=== PATIENT | female | born 1965 | race Caucasian/White ===

== ENCOUNTER → 2018-02-06 15:53 | Outpatient (CLI) | payer OTHER, SELFPAY ==
[2018-02-06 17:50] LABS: T4 Free Direct 1.18 ng/dL (0.76-1.46)
[2018-02-10 08:53] LABS: Anti-Thyroglobulin AB < 1.0 IU/mL (0.0-0.9); Thyroglobulin, Serum Qt. 1.4 ng/mL (1.5-38.5)
--- OUTSIDE RECORDS SUMMARY | 2018-04-02 17:57 | XMS RPT_ITS | Summary of Care ---
:1965 Author Organization [facility] Address [address] [place] [address] Care Team Providers Name Role Phone Lynn Ratliff DO Primary Care Provider Encounter Details Date Type Department Care Team Description 09/18/2017 Office Visit [facility] Orthopedic Kana Crabtree Seropositive and Sports Medicine Jen, MD rheumatoid arthritis [address] (HCC) (Primary Dx) Medical Office [place], [place] [address] [address] [place], [place] [phone] Allergies No Known Allergiesas of this encounter Medications Prescription Sig. Disp. Refills Start Date End Date Status ALPRAZolam (XANAX) 0.5 Take 0.5 mg 0 08/10/2015 Active MG tablet by mouth 3 (three) times a day as needed NEEDED FOR ANXIETY. amLODIPine (NORVASC) 10 08/10/2015 Active MG tablet LEVOXYL 137 mcg tablet 08/21/2015 Active venlafaxine (EFFEXOR-XR) 08/22/2015 Active 150 MG 24 hr capsule cholecalciferol (VITAMIN Take 10,000 01/22/2013 Active D3) 10,000 unit capsule Units by mouth. lisinopril Take 40 mg 1 02/14/2016 Active (PRINIVIL,ZESTRIL) 20 MG by mouth tablet daily. atorvastatin (LIPITOR) Take 10 mg 5 07/01/2016 Active 10 MG tablet by mouth daily. fluticasone (FLONASE) 50 2 sprays 2 07/12/2016 Active mcg/actuation nasal daily. spray lisinopril Take 40 mg 5 07/23/2016 Active (PRINIVIL,ZESTRIL) 40 MG by mouth tablet daily. losartan-hydrochlorothia Take 1 5 08/12/2017 Active zide (HYZAAR) 50-12.5 mg tablet by per tablet mouth daily. hydroxychloroquine Take 1 pill 60 tablet 3 06/12/2016 Discontinued (PLAQUENIL) 200 mg twice a 8 tabletIndications: day.. Seropositive rheumatoid arthritis (HCC) as of this encounter Active Problems Problem Noted Date Left lateral epicondylitis 08/21/2016 Lateral epicondylitis, right elbow 09/27/2015 Social History Tobacco Use Types Packs/Day Years Used Date Never Smoker Smokeless Tobacco: Never Used Alcohol Use Drinks/Week oz/Week Comments No Sex Assigned at Date Recorded Not on file as of this encounter Last Filed Vital Signs Vital Sign Reading Time Taken Blood Pressure 162/100 09/18/2017 10:03 AM EDT Pulse 91 09/18/2017 10:03 AM EDT Temperature - - Respiratory Rate - - Oxygen Saturation - - Inhaled Oxygen Concentration - - Weight 97.1 kg (214 lb 1.6 oz) 09/18/2017 10:03 AM EDT Height - - Body Mass Index 35.63 09/18/2017 10:03 AM EDT in this encounter Progress Notes Kana Crabtree MD - 09/18/2017 11:43 [facility] Name: Nalini Reynoso Date:09/18/17 [id number] :1965 Allergies: no known allergies. Medications: Current Outpatient Prescriptions: ??? ALPRAZolam (XANAX) 0.5 MG tablet, Take 0.5 mg by mouth 3 (three) times a day as needed NEEDED FOR ANXIETY., Disp: , Rfl: 0 ??? cholecalciferol (VITAMIN D3) 10,000 unit capsule, Take 10,000 Units by mouth., Disp: , Rfl: ??? LEVOXYL 137 mcg tablet, , Disp: , Rfl: ??? losartan-hydrochlorothiazide (HYZAAR) 50-12.5 mg per tablet, Take 1 tablet by mouth daily., Disp: , Rfl: 5 ??? venlafaxine (EFFEXOR-XR) 150 MG 24 hr capsule, , Disp: , Rfl: ??? amLODIPine (NORVASC) 10 MG tablet, , Disp: , Rfl: ??? atorvastatin (LIPITOR) 10 MG tablet, Take 10 mg by mouth daily., Disp: , Rfl: 5 ??? fluticasone (FLONASE) 50 mcg/actuation nasal spray, 2 sprays daily., Disp: , Rfl: 2 ??? lisinopril (PRINIVIL,ZESTRIL) 20 MG tablet, Take 40 mg by mouth daily., Disp: , Rfl: 1 ??? lisinopril (PRINIVIL,ZESTRIL) 40 MG tablet, Take 40 mg by mouth daily., Disp: , Rfl: 5 Chief Complaint: Patient here for rheumatoid arthritis evaluation Interim History: The patient has not been seen by me since June 2016. At that time she was started on Plaquenil andasked to return in 90 days. Patient reports that the Plaquenil did not help her when she ran out ofit she simply did not do anything further. However she returns at this time stating that her symptoms of rheumatoid have worsened. She has morning stiffness lasting 1-2 hours. She is weather sensitive with cool, damp rainy weather making her feel worse. She notes that she has multiple joints involved including her shoulders, wrists, hands, knees, ankles and feet. She has had swelling in addition. The patient has not had any major infections since her last visit. She has had no surgeries since her last visit. She has had no hospitalizations since her last visit. Interim ROS: Eyes:_Denies new ocular events___ Derm:_Denies new dermatologic disease____ ENT:_Denies new ear nose and throat events____ Cardio:_Denies new cardiac conditions___ Pulm:_Denies new pulmonary problems____ G.I:__Denies new intestinal issues Renal:_Denies new renal disorders____ Hem/Onc:_Denies new hematologic or oncologic diagnoses___ Interim Social History: No change Exams: The wrists have fair range of motion with tenderness but no swelling. The MCPs and PIPs demonstrate tenderness but no gross swelling. Patient can make a closed fist with both hands. Interim Lab Review: No recent lab work is available Impression: Active RA. Plan: 1. Discussed situation with the patient. I reviewed methotrexate with her and indicated to her thatif she were to try methotrexate she would have to abstain from alcoholic beverages and she is agreeable with that. I reviewed methotrexate with her in detail and gave her the ACR monograph on methotrexate to read. 2. We will need to obtain baseline lab work first however and the appropriate lab requisition is printed for her and given to her. Once I received all those results I will notify the patient and if she is a candidate for this medicine, we will commence treatment. 3. More than 50% of the 15 minute office time today was spent in counseling. Please note: Portions of this chart may have been created with [employer] voice recognition software. Occasional wrong-word or sound-like substitutions may have occurred due to inherent limitations of the voice recognition software. Please read the chart carefully and recognize, using context, where the substitutions have occurred. Kana Crabtree MD in this encounter Plan of Treatment Scheduled Tests Name Priority Associated Diagnoses Order Schedule BUN Routine Seropositive rheumatoid 1 Occurrences starting arthritis (HCC) 09/18/2017 until 09/19/2018 CBC and Differential Routine Seropositive rheumatoid 1 Occurrences starting arthritis (HCC) 09/18/2017 until 09/19/2018 CRP, Inflammation Routine Seropositive rheumatoid 1 Occurrences starting arthritis (HCC) 09/18/2017 until 09/19/2018 Creatinine, serum Routine Seropositive rheumatoid 1 Occurrences starting arthritis (HCC) 09/18/2017 until 09/19/2018 Hepatic Function Panel Routine Seropositive rheumatoid 1 Occurrences starting arthritis (HCC) 09/18/2017 until 09/19/2018 Hepatitis B Surface Routine Seropositive rheumatoid 1 Occurrences starting Antibody arthritis (HCC) 09/18/2017 until 09/19/2018 Hepatitis C Antibody Routine Seropositive rheumatoid 1 Occurrences starting arthritis (HCC) 09/18/2017 until 09/19/2018 Rheumatoid factor Routine Seropositive rheumatoid 1 Occurrences starting arthritis (HCC) 09/18/2017 until 09/19/2018 CCP Antibody Routine Seropositive rheumatoid 1 Occurrences starting arthritis (HCC) 09/18/2017 until 09/19/2018 M. Tuberculosis by Routine Seropositive rheumatoid 1 Occurrences starting QuantiFERON arthritis (HCC) 09/18/2017 until 09/19/2018 Sedimentation Rate Routine Seropositive rheumatoid 1 Occurrences starting arthritis (HCC) 09/18/2017 until 09/19/2018 Health Maintenance Due Date Last Done Comments COLONOSCOPY 1965 PAP SMEAR 1965 TETANUS EVERY 10 YR 1965 SEQUENTIAL INFLUENZA VACCINE (#1) 2017 as of this encounter Visit Diagnoses Diagnosis Seropositive rheumatoid arthritis (HCC) - Primary
--- OUTSIDE RECORDS SUMMARY | 2018-04-02 17:57 | XMS RPT_ITS | Summary of Care ---
:1965 Author Organization [facility] Address [address] [place] [address] Care Team Providers Name Role Phone Lynn Ratliff DO Primary Care Provider Encounter Details Date Type Department Care Team Description 09/18/2017 Hospital Encounter [facility] [place] [address] MD [place], [place] [address] [id number] [place] [address] Allergies No Known Allergiesas of this encounter Medications Prescription Sig. Disp. Refills Start Date End Date Status ALPRAZolam (XANAX) 0.5 MG Take 0.5 mg by 0 08/10/2015 Active tablet mouth 3 (three) times a day as needed NEEDED FOR ANXIETY. amLODIPine (NORVASC) 10 MG 08/10/2015 Active tablet LEVOXYL 137 mcg tablet 08/21/2015 Active venlafaxine (EFFEXOR-XR) 08/22/2015 Active 150 MG 24 hr capsule cholecalciferol (VITAMIN Take 10,000 Units 01/22/2013 Active D3) 10,000 unit capsule by mouth. lisinopril Take 40 mg by 1 02/14/2016 Active (PRINIVIL,ZESTRIL) 20 MG mouth daily. tablet atorvastatin (LIPITOR) 10 Take 10 mg by 5 07/01/2016 Active MG tablet mouth daily. fluticasone (FLONASE) 50 2 sprays daily. 2 07/12/2016 Active mcg/actuation nasal spray lisinopril Take 40 mg by 5 07/23/2016 Active (PRINIVIL,ZESTRIL) 40 MG mouth daily. tablet losartan-hydrochlorothiazid Take 1 tablet by 5 08/12/2017 Active e (HYZAAR) 50-12.5 mg per mouth daily. tablet as of this encounter Active Problems Problem Noted Date Left lateral epicondylitis 08/21/2016 Lateral epicondylitis, right elbow 09/27/2015 Social History Tobacco Use Types Packs/Day Years Used Date Never Smoker Smokeless Tobacco: Never Used Alcohol Use Drinks/Week oz/Week Comments No Sex Assigned at Date Recorded Not on file as of this encounter Plan of Treatment Health Maintenance Due Date Last Done Comments COLONOSCOPY 1965 PAP SMEAR 1965 TETANUS EVERY 10 YR 1965 SEQUENTIAL INFLUENZA VACCINE (#1) 2017 as of this encounter Results Sedimentation Rate (09/18/2017 10:39 AM) Component Value Ref Range Sed Rate 11 0 - 20 MM/hr. Specimen [place]forming [place] [address] BUN and Creatinine (09/18/2017 10:39 AM) Component Value Ref Range BUN 9 8 - 25 mg/dL Creatinine 0.73 0.40 - 1.10 mg/dL eGFR >=60 ml/min/1.73sq.m Comment: Non- GFR Calc eGFR is an estimated Glomerular Filtration Rate based on the value of the patient's serum creatinine. In outpatients, eGFR should be used as a helpful tool in screening for CKD. In inpatients or patients with acute renal failure, eGFR represents the GFR at the moment of the draw and should be used with caution. eGFR >=60Comment: GFR Calc ml/min/1.73sq.m Specimen Performing Laboratory Blood [address] [address] Hepatic Function Panel (09/18/2017 10:39 AM) Component Value Ref Range AST 45 0 - 45 U/L Comment: This test result might be falsely depressed or falsely elevated on samples drawn from patients taking Sulfasalazine and Sulfapyridine. Venipuncture should occur prior to taking either of these drugs. ALT 91 (H) 14 - 65 U/L Comment: This test result might be falsely depressed or falsely elevated on samples drawn from patients taking Sulfasalazine and Sulfapyridine. Venipuncture should occur prior to taking either of these drugs. Alkaline Phosphatase 64 40 - 150 U/L Bilirubin, Total 0.5 0.3 - 1.2 mg/dL Bilirubin, Direct <0.1 0.0 - 0.4 mg/dL Total Protein 7.5 6.0 - 8.0 g/dL Albumin 4.0 3.2 - 5.2 g/dL Specimen Performing [place] [address] CRP, C-Reactive Protein (09/18/2017 10:39 AM) Component Value Ref Range CRP - Inflammation 13.5 (H) 0.0 - 10.0 mg/L Specimen Performing [place] [address] CBC and Differential (09/18/2017 10:39 AM) Component Value Ref Range WBC 8.1 3.4 - 10.6 K/mcL RBC 4.51 3.7 - 5.0 M/mcL Hemoglobin 13.4 11.6 - 15.4 g/dL Hematocrit 39.7 34.4 - 44.8 % MCV 88.1 82.6 - 98.9 FL MCH 29.6 27.9 - 33.9 pg MCHC 33.6 33.1 - 35.1 g/dL RDW 14.6 (H) 10.0 - 14.4 % Platelets 363 162 - 402 K/mcL MPV 7.9 7.0 - 10.6 FL Absolute Neutrophils 5.4 1.2 - 6.9 K/mcL Absolute Lymphocytes 1.8 1.0 - 3.7 K/mcL Absolute Monocytes 0.6 0.1 - 0.6 K/mcL Absolute Eosinophils 0.3 0 - 0.5 K/mcL Absolute Basophils 0.1 0 - 0.2 K/mcL Segmented Neut 66.4 % Lymphocytes 22.7 % Monocytes 7.0 % Eosinophils 3.1 % Basophils 0.8 % Specimen [place]forming [place] [address] in this encounter
--- OUTSIDE RECORDS SUMMARY | 2018-04-02 17:58 | XMS RPT_ITS ---
:1965 Author Organization OHIP Care Team Providers Name Role Phone ALBERTO MEJIA Referring Unavailable ALBERTO MEJIA Referring Unavailable ALBERTO MEJIA Attending Unavailable OLGA MARES S Referring Unavailable ALBERTO MEJIA Referring Unavailable ALBERTO CRABTREE Attending Unavailable Alberto Mejia Attending Unavailable Alberto Mejia Referring Unavailable , OLGA Primary Care Unavailable Isis Carcamo LAUNDRY TECHNICIAN-C Consulting Unavailable Dr. Alberto Crabtree Admitting Unavailable Dr. Alberto Crabtree Attending Unavailable ALBERTO CRABTREE EVI Attending Unavailable , OLGA S. Primary Care Unavailable ALBERTO CRABTREE Attending Unavailable ROYAL, OLGA S. Primary Care Unavailable [place], Olga S Attending Unavailable [place], Olga S Primary Care Unavailable [place], Olga S Admitting Unavailable [place], Olga S Attending Unavailable [place], Olga S Primary Care Unavailable [place], Olga S Attending Unavailable [place], Olga S Primary Care Unavailable KangSantos campos Attending Unavailable [place], Olga S Primary Care Unavailable Olaf Hurtado Admitting Unavailable NewbillOlaf Attending Unavailable [place], Olga S Primary Care Unavailable [place], Olga S Attending Unavailable [place], Olga S Primary Care Unavailable [place], Olga S Admitting Unavailable Santos Kapadia Admitting Unavailable KangSantos campos Attending Unavailable [place], Olga S Primary Care Unavailable KangSantos campos Attending Unavailable [place], Olga S Primary Care Unavailable KangSantos campos Admitting Unavailable [place], Olga S Attending Unavailable [place], Olga S Primary Care Unavailable [place], Olga S Attending Unavailable [place], Olga S Primary Care Unavailable [place], Olga S Admitting Unavailable Carmen Maldonado Attending Unavailable [place], Olga S Primary Care Unavailable Carmen Maldonado Admitting Unavailable [place], Olga S Admitting Unavailable [place], Olga S Attending Unavailable [place], Olga S Primary Care Unavailable [place], Olga S Attending Unavailable [place], Olga S Primary Care Unavailable [place], Olga S Admitting Unavailable [place], Olga S Attending Unavailable [place], Olga S Primary Care Unavailable StadnickAlberto S Admitting Unavailable StadnickAlberto S Attending Unavailable [place], Olga S Primary Care Unavailable [place], Olga S Attending Unavailable [place], Olga S Primary Care Unavailable [place], Olga S Admitting Unavailable No Doctor Assigned, Nodr Admitting Unavailable No Doctor Assigned, Nodr Attending Unavailable [place], Olga S Primary Care Unavailable SunlOlaf Admitting Unavailable NewbillOlaf Attending Unavailable [place], Olga S Primary Care Unavailable GermainJaclynd Admitting Unavailable GermainJaclynd Attending Unavailable [place], Olga S Primary Care Unavailable GermainJaclynd Admitting Unavailable Germain, Charan Attending Unavailable [place], Olga S Primary Care Unavailable [place], Olga S Admitting Unavailable [place], Olga S Attending Unavailable [place], Olga S Primary Care Unavailable [place], Olga S Attending Unavailable [place], Olga S Primary Care Unavailable [place], Olga S Admitting Unavailable [place], Olga S Admitting Unavailable [place], Olga S Attending Unavailable [place], Olga S Primary Care Unavailable [place], Olga S Attending Unavailable [place], Olga S Primary Care Unavailable PROBLEMS PROBLEMS DATE TYPE CONDITION / CODE ATTENDING STATUS SOURCE 09/18/2017 Admitting Encounter for ALBERTO CRABTREE Active [facility] One diagnosis general adult EVI Repository medical examination without abnormal findings / Z00.00(ICD-10) 09/18/2017 Admitting Rheumatoid ALBERTO CRABTREE Active [facility] diagnosis arthritis with EVI Three Repository rheumatoid factor, unspecified / M05.9(ICD-10) 07/22/2017 Active Unknown / ALBERTO MEJIA Active [facility] UNK(Unknown) A [place] Repository 09/18/2006 Active [address] NA [address] 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 / Repository C73(ICD-10) PROCEDURES PROCEDURES No Procedure Records FoundRESULTS RESULTS THYROID STIM HORMONE Collected: 02/06/2018 Status: F Source: NBA (TSH) 3:58 PM [facility] REPOSITORY TYPE CODE TESTS RESULT OUT OF RANGE REFERENCE UNITS LAB L501.9520 0.358-3.74 uIU/mL High TSH 10.20 Performed By: #### L501.9520, L506.0400 #### [facility] [address] [place], [place], [id number] T4 FREE DIRECT Collected: 02/06/2018 Status: F Source: NBA 3:58 PM [facility] REPOSITORY TYPE CODE TESTS RESULT OUT OF RANGE REFERENCE UNITS LAB L506.0400 0.76-1.46 ng/dL Normal T4 FREE 1.18 DIRECT Performed By: #### L501.9520, L506.0400 #### [facility] [address] [place], [place], [address] THYROGLOBULIN W/ANTI-TG Collected: 02/06/2018 Status: F Source: NBA AB 3:58 PM [facility] REPOSITORY TYPE CODE TESTS RESULT OUT OF RANGE REFERENCE UNITS LAB L3300.7025 0.0-0.9 IU/mL Normal ANTI-TG < 1.0 AB Result Comment: Thyroglobulin Antibody measured by [facility] LAB L3400.1030 1.5-38.5 ng/mL Low THYROGLOB 1.4 Result Comment: According to the National Academy of Clinical Biochemistry, the reference interval for Thyroglobulin (TG) should be related to euthyroid patients and not for patients who underwent thyroidectomy. TG reference intervals for these patients depend on the residual mass of the thyroid tissue left after surgery. Establishing a post-operative baseline is recommended. The assay limit of quantitation is 0.1 ng/mL Thyroglobulin measured by Dasha Wakefield Immunometric Assay Performed at: - [facility] [address] [id number] Fibreglass Laminator: Bobby Watkins PhD, Phone: [phone] Performed By: #### L3300.2645 #### [facility] (refer to report for specific site) refer to report for address and phone number BMP Collected: 01/21/2018 Status: F Source: [facility] 10:10 AM [facility] REPOSITORY TYPE CODE TESTS RESULT OUT OF RANGE REFERENCE UNITS LAB [id number](L 70-99 mg/dL OINC) High Glucose Lvl 116 LAB [id number](L 6-23 mg/dL OINC) BUN Normal 10 LAB [id number](LO 0.5-1.1 mg/dL INC) Normal Creatinine 0.7 LAB [id number](L 5.4-30.0 ratio OINC) Normal BUN/Creat Ratio 14.3 LAB [id number](L 8.6-10.3 mg/dL OINC) Calcium Normal Lvl 9.3 LAB [id number](L 136-145 mEq/L OINC) Sodium Normal Lvl 142 LAB [id number](L 3.5-5.3 mEq/L OINC) Normal Potassium Lvl 3.5 LAB 01711020(L 98-107 mEq/L OINC) Chloride Normal 106 LAB [id number](L 21.0-32.0 mEq/L OINC) CO2 Normal 28.0 Performed By: #### [id number] #### LANDEN [employer] [facility] [place] [address] EGFR Collected: 01/21/2018 Status: F Source: [facility] 10:10 AM [facility] REPOSITORY Order Comment: Order added by Discern Expert. TYPE CODE TESTS RESULT OUT OF RANGE REFERENCE UNITS LAB [id number](LO mL/min/1.73 INC) m2 Normal eGFR >60 LAB [id number](LO mL/min/1.73 INC) m2 Normal eGFR AA >60 Performed By: #### [id number] #### LANDEN [employer] [address] [place], [place] [address] HEP FUNC PANEL Collected: 01/21/2018 Status: F Source: [facility] 10:10 AM [facility] REPOSITORY TYPE CODE TESTS RESULT OUT OF RANGE REFERENCE UNITS LAB [id number](L 7-45 Int._Unit/L OINC) High ALT 59 LAB 60423283(L 9-39 Int._Unit/L OINC) High AST 43 LAB 30981910(L 3.4-5.0 gm/dL OINC) Normal Albumin Lvl 4.4 LAB 93023430(L 2.0-4.0 G/DL OINC) Normal Globulin 3.0 LAB 36141734(L 1.1-1.9 ratio OINC) Normal A/G Ratio 1.6 LAB 47231208(L 33-110 Int._Unit/L OINC) Normal Alk Phos 62 LAB [id number](L 0.00-0.30 mg/dL OINC) Normal Bili Direct 0.08 LAB 44794314(L OINC) Normal Bili Indirect 0.4 Result Comment: No established ranges available for the Indirect Biliruben. LAB 02420179(LOINC) 0.0-1.2 mg/dL Normal Bili Total 0.5 LAB 08840758(LOINC) 6.4-8.2 gm/dL Normal Total Protein 7.1 Performed By: #### [id number] #### LANDEN [employer] [address] [place], [place] [address] LIPID PROFILE Collected: 01/21/2018 Status: F Source: [facility] 10:10 AM [facility] REPOSITORY TYPE CODE TESTS RESULT OUT OF RANGE REFERENCE UNITS LAB [id number](LO 0-199 mg/dL INC) High Chol 212 Result Comment: TOTAL CHOLEESTEROL: <200 NORMAL 200 - 239 BORDERLINE HIGH >240 HIGH LAB 78832690(LOINC) 40-60 mg/dL Normal HDL 51 LAB 43876691(LOINC) 0-130 mg/dL Normal LDL 119 Result Comment: <100 OPTIMAL 100-129 NEAR / ABOVE OPTIMAL 130-159 BORDERLINE HIGH 160-189 HIGH >190 VERY HIGH CALC LDL NOT VALID WHEN TRIGLYCERIDE IS >400 MG/DL LAB 51453421(LOINC) 0-149 mg/dL High Trig 212 Result Comment: AGE DESIRABLE BORDERLINE HIGH 91 D - 9 Y 0 - 74 75 - 99 > 100 10 - 19 Y 0 - 89 90 - 129 > 130 20 -24 Y 0 - 114 115 - 149 > 150 > 25 0 - 149 150 - 199 200 - 499 LAB 77340402(LOINC) 0-40 mg/dL High VLDL 42 Performed By: #### [id number] #### L[facility]EN [employer] [address] [place] [address] HGBA1C Collected: 01/21/2018 Status: F Source: [place] 10:10 AM [facility] REPOSITORY TYPE CODE TESTS RESULT OUT OF RANGE REFERENCE UNITS LAB [id number]( 4.0-6.3 % LOINC) Normal Hemoglobin A1c 6.2 Performed By: #### [id number] #### LANDEN Chemistry Manual Subsection [address] [place] [address] MA MAMM SCREEN W/CAD Observed: 01/19/2018 Status: F Source: [place] IF PERFORMED BILAT 1:03 PM [facility] REPOSITORY Exam Date/Time: 01/19/2018 13:12 EST Reason for Exam: SCREENING;Screening Report STUDY: Digital mammography screening; 01/19/2018 1:12 pm ACCESSION NUMBER(S): [id number] ORDERING CLINICIAN: Santos Kapadia INDICATION: Screening. COMPARISON: Comparison is made to prior digital mammograms dated 01/16/2017 and 12/14/2015 FINDINGS: CC and MLO 2D digital mammographic images of the bilateral breasts were obtained. There are areas of scattered fibroglandular tissue. No discrete mass or focal asymmetry is identified. No suspicious microcalcifications or foci of architectural distortion are seen. There has been no significant change. This study was interpreted with CAD. IMPRESSION: No mammographic evidence of malignancy. BI-RADS CATEGORY: Category: 1 - Negative. Recommendation: Normal Interval Follow-up, Over Age 40. Recall Interval: 12 Months. Breast Density: Scattered Fibroglandular Density. FINAL REPORT Dictated: 01/20/2018 11:07 am Harrison Dykes MD Signed (Electronic Signature): 01/20/2018 11:07 am Signed by: Harrison Dykes MD Technologist: ANGE Assessment: BI-RADS Category 1-Negative Recommendation: Normal interval follow-up XR CHEST 2 VIEWS Observed: 12/26/2017 Status: F Source: [facility] 11:40 AM [facility] REPOSITORY Exam Date/Time: 12/26/2017 11:50 EDT Reason for Exam: Cough Report STUDY: XR Chest 2 Views; 12/26/2017 11:50 am INDICATION: Cough. COMPARISON: Chest x-ray 03/08/2014 ACCESSION NUMBER(S): [id number] ORDERING CLINICIAN: Charan Germain FINDINGS: Small lung volumes. The lungs appear clear without pleural effusion. Normal heart size, mediastinum, kailee, pulmonary vasculature. IMPRESSION: No active disease in the chest. FINAL REPORT Dictated: 12/26/2017 6:27 pm Paul Mondragon MD Signed (Electronic Signature): 12/26/2017 6:27 pm Signed by: Paul Mondragon MD Technologist: LOUIE HEP FUNC PANEL Collected: 11/18/2017 Status: F Source: [facility] 2:22 PM [facility] REPOSITORY TYPE CODE TESTS RESULT OUT OF RANGE REFERENCE UNITS LAB [id number](L 10-40 Int._Unit/L OINC) High ALT 59 LAB 88631898(L 10-42 Int._Unit/L OINC) High AST 48 LAB 95711643(L 3.2-5.0 G/DL OINC) Normal Albumin Lvl 4.6 LAB 78526490(L 2.0-4.0 G/DL OINC) Normal Globulin 3.1 LAB 16295537(L 1.1-1.9 ratio OINC) Normal A/G Ratio 1.5 LAB [id number](L 42-121 Int._Unit/L OINC) Normal Alk Phos 59 LAB 51067556(L .00-.20 mg/dL OINC) Normal Bili Direct <.10 LAB 72170493(L OINC) Normal Bili Indirect >0.6 Result Comment: No established ranges available for the Indirect Biliruben. LAB 67085975(LOINC) 0.2-1.0 mg/dL Normal Bili Total 0.7 LAB 88146930(LOINC) 6.4-8.3 G/DL Normal Total Protein 7.7 Performed By: #### [id number] #### LANDEN [facility] [place] [address] CBC W/ AUTO DIFF Collected: 10/08/2017 Status: F Source: [facility] 8:26 AM [facility] REPOSITORY TYPE CODE TESTS RESULT OUT OF RANGE REFERENCE UNITS LAB [id number](L 3.6-11.0 E3/mcL OINC) Normal WBC 9.9 LAB [id number](L 3.90-5.40 E6/mcL OINC) Normal RBC 4.17 LAB [id number](L 12.0-16.0 G/DL OINC) Normal Hgb 12.6 LAB 80005756(L 36.0-48.0 % OINC) Normal Hct 36.6 LAB 54141561(L 11.5-14.5 % OINC) Normal RDW 14.1 LAB 11164005(L 27.0-31.0 pg OINC) Normal MCH 30.2 LAB 66421671(L 33.0-37.0 G/DL OINC) Normal MCHC 34.4 LAB 16821673(L 78.0-100.0 fL OINC) Normal MCV 87.8 LAB 57889783(L 7.4-11.0 fL OINC) Normal MPV 8.5 LAB 40254072(L 130-400 E3/mcL OINC) Normal Platelet 373 Performed By: #### [id number] #### LANDEN [facility] [place] [id number] AUTO DIFF Collected: 10/08/2017 Status: F Source: [facility] 8:26 AM [facility] REPOSITORY Order Comment: Order Added by Discern Expert. TYPE CODE TESTS RESULT OUT OF RANGE REFERENCE UNITS LAB [id number](L 37.0-75.0 % OINC) Normal Neutro Auto 67.3 LAB 65319438(L 20.0-55.0 % OINC) Normal Lymph Auto 23.3 LAB 67994428(L 0.0-10.0 % OINC) Normal [place] Auto 6.4 LAB 00773278(L 0.0-11.0 % OINC) Normal Eos Auto 2.4 LAB 97951827(L 0.0-2.0 % OINC) Normal Basophil Auto 0.6 LAB 91929313(L 1.4-6.5 E3/mcL OINC) High Neutro 6.6 Absolute LAB 31999067(L 1.2-3.4 E3/mcL OINC) Normal Lymph Absolute 2.3 LAB 71225747(L 0.0-0.7 E3/mcL OINC) Normal [place] Absolute 0.6 LAB 58453107(L 0.0-0.7 E3/mcL OINC) Normal Eos Absolute 0.2 LAB 23194615(L 0.0-0.2 E3/mcL OINC) Normal Basophil 0.1 Absolute Performed By: #### [id number] #### LANDEN [employer] [address] [place] [address] TSH Collected: 10/08/2017 Status: F Source: [facility] 8:26 AM [facility] REPOSITORY TYPE CODE TESTS RESULT OUT OF RANGE REFERENCE UNITS LAB [id number](LO 0.30-5.60 mIU/m INC) Normal TSH 2.48 Performed By: #### [id number] #### LANDEN [employer] [address] [place] [address] BMP Collected: 10/08/2017 Status: F Source: [facility] 8:26 AM [facility] REPOSITORY TYPE CODE TESTS RESULT OUT OF RANGE REFERENCE UNITS LAB [id number](L 70-99 mg/dL OINC) High Glucose Lvl 111 LAB 73421454(L 7-18 mg/dL OINC) BUN Normal 12 LAB 4879584(LO 0.6-1.3 mg/dL INC) Normal Creatinine 0.7 LAB 64279135(L 5.4-30.0 ratio OINC) Normal BUN/Creat Ratio 17.1 LAB 49461153(L 8.4-10.2 mg/dL OINC) Calcium Normal Lvl 8.9 LAB 79602623(L 136-145 mEq/L OINC) Sodium Normal Lvl 139 LAB [id number](L 3.5-5.1 mEq/L OINC) Low Potassium Lvl 3.2 LAB 89062715(L 98-107 mEq/L OINC) Chloride Normal 103 LAB [id number](L 24.0-30.0 mEq/L OINC) CO2 Normal 27.2 Performed By: #### [id number] #### [place] [address] EGFR Collected: 10/08/2017 Status: F Source: [facility] 8:26 AM [facility] REPOSITORY Order Comment: Order added by Discern Expert. TYPE CODE TESTS RESULT OUT OF RANGE REFERENCE UNITS LAB 85375989(LO mL/min/1.73 INC) m2 Normal eGFR >60 LAB 88676517(LO mL/min/1.73 INC) m2 Normal eGFR AA >60 Performed By: #### [id number] #### [place] [address] ALT Collected: 10/08/2017 Status: F Source: [facility] 8:26 [facility] REPOSITORY TYPE CODE TESTS RESULT OUT OF RANGE REFERENCE UNITS LAB 77032169(LO 10-40 Int._Unit/L INC) High ALT 74 Performed By: #### [id number] #### [place] [address] AST Collected: 10/08/2017 Status: F Source: [facility] 8:26 AM [facility] REPOSITORY TYPE CODE TESTS RESULT OUT OF RANGE REFERENCE UNITS LAB [id number](LO 10-42 Int._Unit/L INC) High AST 59 Performed By: #### [id number] #### LANDEN [employer] [address] [place] [address] LIPID PROFILE Collected: 10/08/2017 Status: F Source: [facility] 8:26 AM [facility] REPOSITORY TYPE CODE TESTS RESULT OUT OF RANGE REFERENCE UNITS LAB [id number](LO 50-200 mg/dL INC) High Chol 254 Result Comment: TOTAL CHOLEESTEROL: <200 NORMAL 200 - 239 BORDERLINE HIGH >240 HIGH LAB 97344073(LOINC) >=41 mg/dL Normal HDL 44 LAB 62025465(LOINC) 0-130 mg/dL High LDL 141 Result Comment: <100 OPTIMAL 100-129 NEAR / ABOVE OPTIMAL 130-159 BORDERLINE HIGH 160-189 HIGH >190 VERY HIGH CALC LDL NOT VALID WHEN TRIGLYCERIDE IS >400 MG/DL LAB 66694490(LOINC) 35-150 mg/dL High Trig 346 Result Comment: <150 NORMAL 150-199 BORDERLINE HIGH 200-499 HIGH >500 VERY HIGH LAB 96366574(INC) Normal VLDL 69 Performed By: #### [id number] #### [place] [employer] [address] [place], [place] [address] CBC WITH DIFF Collected: 09/18/2017 Status: F Source: [facility] 10:39 AM [facility] REPOSITORY TYPE CODE TESTS RESULT OUT OF RANGE REFERENCE UNITS LAB WBC 3.4-10.6 K/mcL WBC Normal 8.1 LAB RBC 3.7-5.0 M/mcL RBC Normal 4.51 LAB HGB 11.6-15.4 g/dL Normal Hemoglobin 13.4 LAB HCT 34.4-44.8 % Normal Hematocrit 39.7 LAB MCV 82.6-98.9 FL MCV Normal 88.1 LAB MCH 27.9-33.9 pg MCH Normal 29.6 LAB MCHC 33.1-35.1 g/dL MCHC Normal 33.6 LAB RDW 10.0-14.4 % High RDW 14.6 LAB PLT 162-402 K/mcL Platelet Normal Count 363 LAB MPV 7.0-10.6 FL MPV Normal 7.9 LAB NEUT# 1.2-6.9 K/mcL Normal Neutrophil # 5.4 LAB LYMPH# 1.0-3.7 K/mcL Normal Lymphocyte # 1.8 LAB MONO# 0.1-0.6 K/mcL Monocyte Normal # 0.6 LAB EOS# 0-0.5 K/mcL Normal Eosinophil # 0.3 LAB BASO# 0-0.2 K/mcL Basophil Normal # 0.1 LAB SEGNEU% % Normal Segmented Neut % 66.4 LAB LYMP% % Normal Lymphocyte% 22.7 LAB MO% % Monocyte Normal % 7.0 LAB EO% % Normal Eosinophil % 3.1 LAB BA% % Basophil Normal % 0.8 Performed By: #### HEPF, HBSABS, HEPCABS, SEDR, CRPQT, CBCDIF, BUNCR, CCPAB #### Unless otherwise noted, all testing performed by [address], [place] [address] CLIA: [id number] Artificial Leather Calender Operator: Juan Antonio Florian, M.D. CRP, C-REACTIVE Collected: 09/18/2017 Status: F Source: [facility] PROTEIN 10:39 AM [facility] REPOSITORY TYPE CODE TESTS RESULT OUT OF REFERENCE UNITS RANGE LAB CRPQT 0.0-10.0 mg/L High CRP, 13.5 C-Reactive Protein Performed By: #### HEPF, HBSABS, HEPCABS, SEDR, CRPQT, CBCDIF, BUNCR, CCPAB #### Unless otherwise noted, all testing performed by [place] [address] CLIA: [id number] Artificial Leather Calender Operator: Juan Antonio Du M.D. HEPATIC FUNCTION Collected: 09/18/2017 Status: F Source: [facility] PANEL 10:39 AM [facility] REPOSITORY TYPE CODE TESTS RESULT OUT OF RANGE REFERENCE UNITS LAB AST 0-45 U/L Normal AST 45 (SGOT) Result Comment: This test result might be falsely depressed or falsely elevated on samples drawn from patients taking Sulfasalazine and Sulfapyridine. Venipuncture should occur prior to taking either of these drugs. LAB ALT 14-65 U/L High ALT (SGPT) 91 Result Comment: This test result might be falsely depressed or falsely elevated on samples drawn from patients taking Sulfasalazine and Sulfapyridine. Venipuncture should occur prior to taking either of these drugs. LAB ALKP 40-150 U/L Normal Alkaline Phosphatase 64 LAB BILIT 0.3-1.2 mg/dL Normal Bilirubin,Total 0.5 LAB BILID 0.0-0.4 mg/dL Normal Bilirubin, Direct < 0.1 LAB PROT 6.0-8.0 g/dL Normal Protein, Total 7.5 LAB ALB 3.2-5.2 g/dL Normal Albumin 4.0 Performed By: #### HEPF, HBSABS, HEPCABS, SEDR, CRPQT, CBCDIF, BUNCR, CCPAB #### Unless otherwise noted, all testing performed by [place] [address] CLIA: [id number] Artificial Leather Calender Operator: Juan Antonio Du M.D. BUN AND CREATININE Collected: 09/18/2017 Status: F Source: [facility] 10:39 AM [facility] REPOSITORY TYPE CODE TESTS RESULT OUT OF RANGE REFERENCE UNITS LAB BUN 8-25 mg/dL BUN Normal 9 LAB CREA 0.40-1.10 mg/dL Normal Creatinine 0.73 LAB eGFR ml/min/1.7 3sq.m Normal eGFR,NonAfrican- >=60 Turkish Result Comment: Non- GFR Calc eGFR is an estimated Glomerular Filtration Rate based on the value of the patient's serum creatinine. In outpatients, eGFR should be used as a helpful tool in screening for CKD. In inpatients or patients with acute renal failure, eGFR represents the GFR at the moment of the draw and should be used with caution. LAB eGFRB ml/min/1.73sq.m eGFR, Normal -Turkish >=60 Result Comment: GFR Calc Performed By: #### HEPF, HBSABS, HEPCABS, SEDR, CRPQT, CBCDIF, BUNCR, CCPAB #### Unless otherwise noted, all testing performed by [place] [address] CLIA: [id number] Artificial Leather Calender Operator: Juan Antonio Du M.D. SED RATE Collected: 09/18/2017 Status: F Source: [facility] 10:39 AM [facility] TYPE CODE TESTS RESULT OUT OF RANGE REFERENCE UNITS LAB SEDR 0-20 MM/hr. Normal Sed Rate 11 Performed By: #### HEPF, HBSABS, HEPCABS, SEDR, CRPQT, CBCDIF, BUNCR, CCPAB #### Unless otherwise noted, all testing performed by [place] [address] CLIA: [id number] Artificial Leather Calender Operator: Juan Antonio Du M.D. CCP ANTIBODIES Collected: 09/18/2017 Status: F Source: [facility] 10:39 AM [facility] REPOSITORY TYPE CODE TESTS RESULT OUT OF RANGE REFERENCE UNITS LAB CCPAB 0.0-20.0 Unit CCP Normal Antibodies 4.7 Result Comment: Reference Ranges: <20Units Negative 20-39Units Weakly Positive 40-59Units Moderative Positive >=60Units Strong Positive Test Performed by [facility] [place] [address] Performed By: #### HEPF, HBSABS, HEPCABS, SEDR, CRPQT, CBCDIF, BUNCR, CCPAB #### Unless otherwise noted, all testing performed by [place] [address] CLIA: [id number] Artificial Leather Calender Operator: Juan Antonio Du M.D. HEPATITIS C ANTIBODY Collected: 09/18/2017 Status: F Source: [facility] 10:39 AM [facility] REPOSITORY TYPE CODE TESTS RESULT OUT OF REFERENCE UNITS RANGE LAB HEPCABS Negative Normal Hepatitis C Negative Antibody Result Comment: Test performed using Claudia ECTOR immunoassay system [place] [address] Performed By: #### HEPF, HBSABS, HEPCABS, SEDR, CRPQT, CBCDIF, BUNCR, CCPAB #### Unless otherwise noted, all testing performed by [place] [address] CLIA: [id number] Artificial Leather Calender Operator: Juan Antonio Du M.D. HEPATITIS B SURFACE Collected: 09/18/2017 Status: F Source: [facility] ABS 10:39 AM [facility] REPOSITORY TYPE CODE TESTS RESULT OUT OF REFERENCE UNITS RANGE LAB HBSABQTS mIU/mL Normal Hepatitis B < 5.0 Surf Ab, Qt Result Comment: REFERENCE VALUE Unvaccinated: <5.0 Vaccinated: >=12.0 Test Performed by: [facility] [address] [place] [address] LAB HBSABS Normal Hepatitis B Negative Surface Abs Result Comment: Patient is presumed to be not immune to infection with HBV. REFERENCE VALUE Unvaccinated: Negative Vaccinated: Positive Performed By: #### HEPF, HBSABS, HEPCABS, SEDR, CRPQT, CBCDIF, BUNCR, CCPAB #### Unless otherwise noted, all testing performed by [place] [address] CLIA: [id number] Artificial Leather Calender Operator: Juan Antonio Du M.D. RHEUMATOID FACTOR Collected: 09/18/2017 Status: F Source: [facility] 10:39 [facility] REPOSITORY TYPE CODE TESTS RESULT OUT OF RANGE REFERENCE UNITS LAB RF Negative Abnormal Rheumatoid Positive Factor LAB RFT Rheumatoid > or = 1:32 Factor Titer Performed By: #### RF #### Unless otherwise noted, all testing performed by [place] [address] CLIA: [id number] Artificial Leather Calender Operator: Juan Antonio Du M.D. M.TUBERCULOSIS BY Collected: 09/18/2017 Status: F Source: [facility] QUANTIFERON 10:39 [facility] REPOSITORY TYPE CODE TESTS RESULT OUT OF REFERENCE UNITS RANGE LAB QFT Negative Normal M.Tuberculosis by Negative QuantiFERON Result Comment: No interferon-gamma response to M. tuberculosis antigens was detected. Infection with M. tuberculosis is unlikely. A single negative result does not exclude infection with M. tuberculosis. In patients at high risk for M.tuberculosis infection, a second test should be considered in accordance with the 2017 ATS/IDSA/CDC Clinical Practice Guidelines for Diagnosis of Tuberculosis in Adults and Children [Jhinsohn DM et. al. Clin. Infect. Dis. 2017;64(2):111-115]. LAB DEXQ3 IU/mL Normal Mitogen Minus > 10.00 Nil Result LAB DEXQ4 IU/mL Normal QFT- Nil Result 0.05 Result Comment: Test Performed by: [facility] [address] [place] [address] LAB QFTDEXQE IU/mL Normal TB1 Ag minus -0.01 Nil Result LAB QFTDEXQF IU/mL Normal TB2 Ag minus 0.00 Nil Result Performed By: #### QFT #### Unless otherwise noted, all testing performed by [place] [address] [address] [place], [place] [address] CLIA: [id number] Artificial Leather Calender Operator: Juan Antonio Du M.D. IGP W/HPV RFX Collected: 08/18/2017 Status: F Source: [facility] [id number] 1:11 PM [facility] REPOSITORY Order Comment: Thin Prep. Menopause TYPE CODE TESTS RESULT OUT OF RANGE REFERENCE UNITS LAB [id number](LO INC) Normal See Ref Lab Diagnosis: Report Performed By: #### [id number] #### [place] [address] PATHOLOGY ([facility]) Observed: 08/18/2017 Status: F Source: [facility] 12:00 AM REPOSITORY FINAL GYNECOLOGIC CYTOLOGY REPORT [id number] SPECIMEN ADEQUACY Satisfactory for Evaluation. Endocervical cells/transformation zone component present. GENERAL CATEGORIZATION Negative for Intraepithelial Lesion or Malignancy CLINICAL HISTORY Menopause SPECIMEN (A) SCREENING CERVICAL/ENDOCERVICAL THIN PREP VIAL Performed at [facility], [address] [place] [address] Screened by: Signed Out by: NASIMA AMADO Senior Data Mining Analyst Reported: 08/20/2017 Performed By: #### BINDERY MACHINE FEEDER OFFBEARER #### [facility] [address] [place] [address] TSH Collected: 07/22/2017 Status: F Source: [place] 3:05 PM [facility] REPOSITORY TYPE CODE TESTS RESULT OUT OF RANGE REFERENCE UNITS LAB TSH 0.400-5.500 uU/mL High TSH 9.820 Performed By: #### TSH, FT4 #### [facility] [address] [place], [place] [address] FREE T4 Collected: 07/22/2017 Status: F Source: [place] 3:05 PM [facility] REPOSITORY TYPE CODE TESTS RESULT OUT OF RANGE REFERENCE UNITS LAB FT4 0.9-1.7 ng/dL Free T4 1.1 Performed By: #### TSH, FT4 #### [facility] [employer] [address] [place], [place] [address] PROGRESS Observed: 07/22/2017 Status: COMPLETED Source: [place] 2:41 PM [facility] [place] REPOSITORY HNO ID: [id number] Author: Alberto Mejia Service: (none) Author Type: Physician Type: Progress Notes Filed: 07/22/2017 2:59 PM Note Text: Assessment / Plan Problem: 1) Thyroid CA, multifocal papillary, 1cm max diam, focal invasion into perithyroidal soft tissues bilat, received 181 mCi 131-Iodine, 10 years from surgery and DIAL. She had a suspicious node on ultrasound 02/05/17, negative FNA. Negative thyrogen stimulated TG AND scan, negative PET/CT. Will just follow, apparently tumor may be relatively high TG honey producer. Alternatively, her TSI may be causing this? 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 Treatment / Plan: 1) continue on the 150 mcg levothyroxine daily. 2) [place], [facility] labs before the visit. Alberto Mejia MD Data Review: Component Latest Ref Rng AND Units 05/23/2017 07/16/2017 Thyroglobulin 1.6 - 59.9 ng/mL 4.6 TG Antibody Screen <14.4 IU/mL 2.3 Free T4 0.9 - 1.7 ng/dL 1.1 TSH 0.400 - 5.500 uU/mL 4.560 History Thyroid CA, on levothyroxine 137 mcg x 6/wk Thyroid CA History Surgery (): total thyroidectomy, Dr. Brunson ([facility]) Pathology (): multifocal papillary, left dominant nodule 1.0 cm, multiple nodules on right from 0.1 to 0.6cm. Focal invasion of perithyroidal soft tissues for both lobes. T3, NX, MX. (09/06/11): node FNA left neck, benign lymphoid sample, negative for malignant cells (01/16/17): node FNA left nec, benign lymphoid sample, negative for malignant cells Graves dis Ab Component Latest Ref Rng 06/02/2006 TSI 70 - 150 % Normal 1015 (H) TBI <5 U/L 6.0 (H) DIAL (): 181 mCi 131-Iodine Scan (): focus of increased activity in neck c/w residual thyroid, also increased uptake left hemothorax (mild, diffuse, especially posteriorly), possible pulmonary involvement. (): negative 123-Iodine total body scan, hypothyroid (TSH=77.2) (02/05/17): negative 123-Iodine total body scan, Thyrogen stimulated PET/CT scan (02/05/17): no evidence of focal putake to suggest FDG avid neoplastic process in head AND neck, chest, abdomen/pelvis, or extremities Thyroglobulin Component Thyroglobulin TG Antibody Screen Stimulus Latest Ref Rng 0.8 - 49.0 ng/mL <14.4 IU/mL 06/02/2006 81.6 (H) < 20.0 06/18/2006 94.7 (H) < 20.0 07/11/2006 127.0 (H) < 20.0 11/12/2006 27.2 < 3.0 TSH=65.75 prior to DIAL 01/15/2007 12.3 <8.0 12/29/2007 5.3 <8.0 03/29/2008 16.7 <8.0 TSH=77.2 08/01/2009 4.3 1.6 07/24/2012 2.8 01/08/2013 3.7 2.2 07/19/2013 1.9 1.8 01/01/2014 2.7 1.6 05/02/2014 2.0 1.8 10/17/2014 3.2 1.4 06/07/2015 1.7 1.4 01/23/2016 2.7 1.8 TSH=0.598 05/23/2016 5.0 1.3 TSH=5.620 01/03/2017 6.1 1.3 TSH=1.110 02/07/17 7.8 1.5 Thyrogen stim 07/16/17 4.6 2.3 Vitamin D Component Vitamin D 25 Hydroxy Latest Ref Rng 31.0 - 80.0 ng/mL 12/29/2007 13.1 (L) 08/01/2009 54.8 01/08/2013 55.9 07/19/2013 44.1 01/01/2014 60.0 05/02/2014 49.7 CXR (): normal CT Scan (): normal CT (w/wo) of chest, small hiatal hernia (the source of the abnormal post Rx scan ? PET/CT (02/23/10): Small, nonspecific mildly FDG-avid bilateral cervical lymph nodes (level II). No other FDG-avid lesions noted. Ultrasound (): 2 nodules in left neck along great vessels, hypoechoic, nonvascular, somewhat rounded, no speckling, one just below carotid bifurcation, the other near base of neck. (): no suspicious nodes along great vessels or lateral neck (nodules initially seen had shrunken) (01/11/11): no suspicious adenopathy along great vessels or in lateral neck on either side. No masses in thyroid bed. (07/26/11): no suspicious adenopathy along great vessels or in lateral neck on the right, but on the left in the jugular groove, just below the carotid bifurcation, there is an ovoid nodule that is uniformly hypoechoic, nonvascular, and is 1.2 x 1.0 x 0.7cm, could be aspirated. No masses in thyroid bed. (07/14/12): same node just below carotid bifurcation on left, superficial to carotid, 1.48cm sag x 0.57cm deep x 0.99cm transverse, no suspicious characteristics, stable from last study approx (07/30/13): node below carotid bifurcation on left is shrinking, fits criteria for nonsuspicious node. Thus no suspicious adenopathy along great vessels or in lateral neck on either side. There is a small mass in thyroid bed that is probably a scarred thyroid remnant. (05/06/14): no suspicious adenopathy along great vessels or in lateral neck on either side. No masses in thyroid bed. (05/30/16): no suspicious adenopathy along great vessels or in lateral neck on either side. No masses in thyroid bed. ROS Constit: positive for30 lb weight gain in last 2 years CV: negative for palpitations PHYSICAL EXAM BP 143/83 Pulse 114 Wt 94.9 kg (209 lb 4.8 oz) BMI 34.83 kg/m? PAST MED / SURG / FAMILY / SOCIAL HISTORY PAST MEDICAL HISTORY Diagnosis Date - HTN (hypertension) - Hypercholesterolemia PAST SURGICAL HISTORY Procedure Laterality Date - THYROIDECTOMY No family history on file. Social History Marital status: Spouse name: Years of education: Number of children: Social History Main Topics Smoking status: Never Smoker Smokeless tobacco: Never Used Alcohol use: Yes Comment: rare MEDICATIONS AND ALLERGIES Current Outpatient Prescriptions: levothyroxine (SYNTHROID) 150 mcg tablet Take 1 tablet by mouth once daily. Disp: 30 tablet Rfl: 11 tobramycin-dexamethasone (TOBRADEX) ophthalmic solution Use 1 Drop in the left eye four times daily. Disp: 1 Bottle Rfl: 0 VENLAFAXINE HCL (EFFEXOR ORAL) Take 100 mg by mouth once daily. Disp: Rfl: Cholecalciferol, Vitamin D3, 10,000 unit cap Take 1 capsule by mouth once daily. Disp: Rfl: 0 ALPRAZolam (XANAX) 0.5 mg ORAL tablet Take 1 tablet by mouth once daily as needed. Disp: Rfl: 0 lisinopril(ZESTRIL 5 MG TAB) Take one(1) tablet daily. Disp: Rfl: 0 LOVASTATIN 20 MG TAB Take one(1) tablet daily with evening meal. Disp: Rfl: 0 No current facility-administered medications for this visit. ALLERGIES No Known Allergies CNOV Observed: 07/22/2017 Status: COMPLETED Source: [place] 1:25 PM [facility] REPOSITORY [facility] DEB LOPEZ ([id number]) 1965 F Date Time Provider Department 07/22/17 1:25 PM ALBERTO MEJIA [facility] During your visit today, we recorded the following information about you: Pulse Blood pressure Weight 114/minute 143/83 94.9 kg Alberto Mejia MD 07/22/2017 2:59 PM Signed Assessment / Plan Problem: 1) Thyroid CA, multifocal papillary, 1cm max diam, focal invasion into perithyroidal soft tissues bilat, received 181 mCi 131-Iodine, 10 years from surgery and DIAL. She had a suspicious node on ultrasound 02/05/17, negative FNA. Negative thyrogen stimulated TG AND scan, negative PET/CT. Will just follow, apparently tumor may be relatively high TG honey producer. Alternatively, her TSI may be causing this? 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 Treatment / Plan: 1) continue on the 150 mcg levothyroxine daily. 2) [place], [place] labs before the visit. Alberto Mejia MD Data Review: Component Latest Ref Rng AND Units 05/23/2017 07/16/2017 Thyroglobulin 1.6 - 59.9 ng/mL 4.6 TG Antibody Screen <14.4 IU/mL 2.3 Free T4 0.9 - 1.7 ng/dL 1.1 TSH 0.400 - 5.500 uU/mL 4.560 History Thyroid CA, on levothyroxine 137 mcg x 6/wk Thyroid CA History Surgery (): total thyroidectomy, Dr. Brunson ([facility]) Pathology (): multifocal papillary, left dominant nodule 1.0 cm, multiple nodules on right from 0.1 to 0.6cm. Focal invasion of perithyroidal soft tissues for both lobes. T3, NX, MX. (09/06/11): node FNA left neck, benign lymphoid sample, negative for malignant cells (01/16/17): node FNA left nec, benign lymphoid sample, negative for malignant cells Graves dis Ab Component Latest Ref Rng 06/02/2006 TSI 70 - 150 % Normal 1015 (H) TBI <5 U/L 6.0 (H) DIAL (): 181 mCi 131-Iodine Scan (): focus of increased activity in neck c/w residual thyroid, also increased uptake left hemothorax (mild, diffuse, especially posteriorly), possible pulmonary involvement. (): negative 123-Iodine total body scan, hypothyroid (TSH=77.2) (02/05/17): negative 123-Iodine total body scan, Thyrogen stimulated PET/CT scan (02/05/17): no evidence of focal putake to suggest FDG avid neoplastic process in head AND neck, chest, abdomen/pelvis, or extremities Thyroglobulin Component Thyroglobulin TG Antibody Screen Stimulus Latest Ref Rng 0.8 - 49.0 ng/mL <14.4 IU/mL 06/02/2006 81.6 (H) < 20.0 06/18/2006 94.7 (H) < 20.0 07/11/2006 127.0 (H) < 20.0 11/12/2006 27.2 < 3.0 TSH=65.75 prior to DIAL 01/15/2007 12.3 <8.0 12/29/2007 5.3 <8.0 03/29/2008 16.7 <8.0 TSH=77.2 08/01/2009 4.3 1.6 07/24/2012 2.8 01/08/2013 3.7 2.2 07/19/2013 1.9 1.8 01/01/2014 2.7 1.6 05/02/2014 2.0 1.8 10/17/2014 3.2 1.4 06/07/2015 1.7 1.4 01/23/2016 2.7 1.8 TSH=0.598 05/23/2016 5.0 1.3 TSH=5.620 01/03/2017 6.1 1.3 TSH=1.110 02/07/17 7.8 1.5 Thyrogen stim 07/16/17 4.6 2.3 Vitamin D Component Vitamin D 25 Hydroxy Latest Ref Rng 31.0 - 80.0 ng/mL 12/29/2007 13.1 (L) 08/01/2009 54.8 01/08/2013 55.9 07/19/2013 44.1 01/01/2014 60.0 05/02/2014 49.7 CXR (): normal CT Scan (): normal CT (w/wo) of chest, small hiatal hernia (the source of the abnormal post Rx scan ? PET/CT (02/23/10): Small, nonspecific mildly FDG-avid bilateral cervical lymph nodes (level II). No other FDG-avid lesions noted. Ultrasound (): 2 nodules in left neck along great vessels, hypoechoic, nonvascular, somewhat rounded, no speckling, one just below carotid bifurcation, the other near base of neck. (): no suspicious nodes along great vessels or lateral neck (nodules initially seen had shrunken) (01/11/11): no suspicious adenopathy along great vessels or in lateral neck on either side. No masses in thyroid bed. (07/26/11): no suspicious adenopathy along great vessels or in lateral neck on the right, but on the left in the jugular groove, just below the carotid bifurcation, there is an ovoid nodule that is uniformly hypoechoic, nonvascular, and is 1.2 x 1.0 x 0.7cm, could be aspirated. No masses in thyroid bed. (07/14/12): same node just below carotid bifurcation on left, superficial to carotid, 1.48cm sag x 0.57cm deep x 0.99cm transverse, no suspicious characteristics, stable from last study approx (07/30/13): node below carotid bifurcation on left is shrinking, fits criteria for nonsuspicious node. Thus no suspicious adenopathy along great vessels or in lateral neck on either side. There is a small mass in thyroid bed that is probably a scarred thyroid remnant. (05/06/14): no suspicious adenopathy along great vessels or in lateral neck on either side. No masses in thyroid bed. (05/30/16): no suspicious adenopathy along great vessels or in lateral neck on either side. No masses in thyroid bed. ROS Constit: positive for30 lb weight gain in last 2 years CV: negative for palpitations PHYSICAL EXAM BP 143/83 Pulse 114 Wt 94.9 kg (209 lb 4.8 oz) BMI 34.83 kg/m? PAST MED / SURG / FAMILY / SOCIAL HISTORY PAST MEDICAL HISTORY Diagnosis Date - HTN (hypertension) - Hypercholesterolemia PAST SURGICAL HISTORY Procedure Laterality Date - THYROIDECTOMY No family history on file. Social History Marital status: Spouse name: Years of education: Number of children: Social History Main Topics Smoking status: Never Smoker Smokeless tobacco: Never Used Alcohol use: Yes Comment: rare MEDICATIONS AND ALLERGIES Current Outpatient Prescriptions: levothyroxine (SYNTHROID) 150 mcg tablet Take 1 tablet by mouth once daily. Disp: 30 tablet Rfl: 11 tobramycin-dexamethasone (TOBRADEX) ophthalmic solution Use 1 Drop in the left eye four times daily. Disp: 1 Bottle Rfl: 0 VENLAFAXINE HCL (EFFEXOR ORAL) Take 100 mg by mouth once daily. Disp: Rfl: Cholecalciferol, Vitamin D3, 10,000 unit cap Take 1 capsule by mouth once daily. Disp: Rfl: 0 ALPRAZolam (XANAX) 0.5 mg ORAL tablet Take 1 tablet by mouth once daily as needed. Disp: Rfl: 0 lisinopril(ZESTRIL 5 MG TAB) Take one(1) tablet daily. Disp: Rfl: 0 LOVASTATIN 20 MG TAB Take one(1) tablet daily with evening meal. Disp: Rfl: 0 No current facility-administered medications for this visit. ALLERGIES No Known Allergies Alberto Mejia MD 07/22/2017 2:57 PM Signed Problem: 1) Thyroid CA, multifocal papillary, 1cm max diam, focal invasion into perithyroidal soft tissues bilat, received 181 mCi 131-Iodine, 10 years from surgery and DIAL. She had a suspicious node on ultrasound 02/05/17, negative FNA. Negative thyrogen stimulated TG AND scan, negative PET/CT. Will just follow, apparently tumor may be relatively high TG honey producer. Alternatively, her TSI may be causing this? 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 Treatment / Plan: 1) continue on the 150 mcg levothyroxine daily. 2) return to me in 6 months, wi labs before the visit. Alberto Mejia MD Data Review: Component Latest Ref Rng AND Units 05/23/2017 07/16/2017 Thyroglobulin 1.6 - 59.9 ng/mL 4.6 TG Antibody Screen <14.4 IU/mL 2.3 Free T4 0.9 - 1.7 ng/dL 1.1 TSH 0.400 - 5.500 uU/mL 4.560 Referring Provider: OLGA MARES [[id number]] Allergies As of Date: 07/22/2017 (No Known Allergies) Date Reviewed: 07/22/2017 Reviewed by: Raven Conklin Ma - Fully Assessed Reason for Visit: Thyroid Problem [110] Primary Visit Diagnosis:Malignant neoplasm of thyroid gland (HCC) [C73] Order(s):T4 FREE/FREE THYROX [SQFT4] Order #: [id number] FUTURE TSH BLD [SQTSH] Order #: [id number] FUTURE T4 FREE/FREE THYROX [SQFT4] Order #: [id number] FUTURE TSH BLD [SQTSH] Order #: [id number] FUTURE THYROGLOBULIN BLD [SQTG] Order #: [id number] FUTURE Prescriptions as of 07/22/2017 Sig: LEVOTHYROXINE 150 MCG TABLET Take 1 tablet by mouth once d* TOBRAMYCIN 0.3 %-DEXAMETHASON* Use 1 Drop in the left eye fo* EFFEXOR ORAL Take 100 mg by mouth once maynor* CHOLECALCIFEROL (VITAMIN D3) * Take 1 capsule by mouth once * ALPRAZOLAM 0.5 MG TABLET Take 1 tablet by mouth once d* ZESTRIL 5 MG TABLET Take one(1) tablet daily. LOVASTATIN 20 MG TABLET Take one(1) tablet daily with* Problem List As Of Date 07/22/2017 Noted Resolved MALIGN NEOPL THYROID [C73] INVALID FOR* Vitamin D Deficiency [E55.9] INVALID FOR* Urge urinary incontinence [N39.41] INVALID FOR* Overactive bladder [N32.81] INVALID FOR* Postsurgical hypothyroidism [E89.0] INVALID FOR* Episcleritis of left eye [H15.102] INVALID FOR* Other instructions from your clinician: Problem: 1) Thyroid CA, multifocal papillary, 1cm max diam, focal invasion into perithyroidal soft tissues bilat, received 181 mCi 131- Iodine, 10 years from surgery and DIAL. She had a suspicious node on ultrasound 02/05/17, negative FNA. Negative thyrogen stimulated TG AND scan, negative PET/CT. Will just follow, apparently tumor may be relatively high TG honey producer. Alternatively, her TSI may be causing this? 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 Treatment / Plan: 1) continue on the 150 mcg levothyroxine daily. 2) return to me in 6 months, [facility] labs before the visit. Alberto Mejia MD Data Review: Component Latest Ref Rng AND Units 05/23/2017 07/16/2017 Thyroglobulin 1.6 - 59.9 ng/mL 4.6 TG Antibody Screen <14.4 IU/mL 2.3 Free T4 0.9 - 1.7 ng/dL 1.1 TSH 0.400 - 5.500 uU/mL 4.560 Disposition: Return in about 6 months (around 01/22/2018) for thyroid CA. Follow-up and Disposition History Recorded Encounter Status:Closed by ALBERTO MEJIA MD on 07/22/17 THYROGLOBULIN Collected: 07/16/2017 Status: F Source: [place] 10:02 AM [facility] REPOSITORY TYPE CODE TESTS RESULT OUT OF REFERENCE UNITS RANGE LAB THYG 1.6-59.9 ng/mL Thyroglobulin 4.6 Result Comment: Test analyzed by the Siemens Immulite method LAB TGABS <14.4 IU/mL TG Antibody Screen 2.3 Performed By: #### TG #### [facility] [address] [place] [address] FREE T4 Collected: 05/23/2017 Status: F Source: [place] 12:38 PM [facility] REPOSITORY TYPE CODE TESTS RESULT OUT OF RANGE REFERENCE UNITS LAB FT4 0.9-1.7 ng/dL Free T4 1.1 Performed By: #### FT4, TSH #### [facility] [address] [place] [address] TSH Collected: 05/23/2017 Status: F Source: [place] 12:38 PM [facility] REPOSITORY TYPE CODE TESTS RESULT OUT OF RANGE REFERENCE UNITS LAB TSH 0.400-5.500 uU/mL TSH 4.560 Performed By: #### FT4, TSH #### [facility] [address] [place] [address] OBSOLETE Observed: 03/30/2017 Status: COMPLETED Source: [place] 12:00 AM [facility] REPOSITORY Refill (ENLKDC) DEB LOPEZ ([id number]) 1965 F Date Time Provider [facility] visit today, we recorded the following information about you: Alberto Mejia MD 03/30/2017 2:11 PM Signed Please call her and make sure she is taking the 125 mcg levothyroxine. If she is, then increase her dose of levothyroxine to 137 mcg daily, and I have ordered thyroid tests to be done in 6 weeks. Kim Agarwal 03/31/2017 2:30 PM Signed Called patient, no answer. LM to call office back regarding message from Dr. Mejia. Please transfer call to RN or MA when patient returns call. Thank you, Kim Agarwal 04/01/2017 1:18 PM Signed 2nd call made to patient, no answer. LM to call office back. Kim Agarwal 04/08/2017 11:28 AM Signed 3rd call made to patient, no answer. LM to call office back. Kim Agarwal R.N. Allergies As of Date: 03/30/2017 (No Known Allergies) Date Reviewed: 01/10/2017 Reviewed by: Raven Conklin Ma - Fully Assessed Primary Visit Diagnosis:Postsurgical hypothyroidism [E89.0] Order(s):levothyroxine (LEVOXYL) 137 mcg tabletTake 1 tablet by mouth once daily.Disp: 30 tabletRfl: 11 Prescriptions as of 03/30/2017 Sig: LEVOTHYROXINE 137 MCG TABLET Take 1 tablet by mouth once d* TOBRAMYCIN 0.3 %-DEXAMETHASON* Use 1 Drop in the left eye fo* EFFEXOR ORAL Take 100 mg by mouth once maynor* CHOLECALCIFEROL (VITAMIN D3) * Take 1 capsule by mouth once * ALPRAZOLAM 0.5 MG TABLET Take 1 tablet by mouth once d* ZESTRIL 5 MG TABLET Take one(1) tablet daily. LOVASTATIN 20 MG TABLET Take one(1) tablet daily with* Problem List As Of Date 03/30/2017 Noted Resolved MALIGN NEOPL THYROID [C73] INVALID FOR* Vitamin D Deficiency [E55.9] INVALID FOR* Urge urinary incontinence [N39.41] INVALID FOR* Overactive bladder [N32.81] INVALID FOR* Postsurgical hypothyroidism [E89.0] INVALID FOR* Episcleritis of left eye [H15.102] INVALID FOR* Prescriptions ordered this encounter Disp Refills Start End LEVOTHYROXINE 137 MCG TABLET 30 t* 11 04/08/2017 Route: ORAL Sig: Take 1 tablet by mouth once daily. Medications Discontinued During This Encounter levothyroxine (SYNTHROID) 125 mcg ta* 30 t* 11 01/10/2017 03/30/2017 Route: ORAL Sig: Take 1 tablet by mouth once daily. Disc: Reason for discontinue is not on file. Encounter Status:Closed by ALBERTO MEJIA MD on 04/08/17 CNPN Observed: 03/30/2017 Status: COMPLETED Source: [place] 12:00 AM [facility] REPOSITORY Telephone (ENLCaipiaobao) DEB LOPEZ ([id number]) 1965 F Date Time Provider Department 03/30/17 ALBERTO MEJIA [facility] During your visit today, we recorded the following information about you: Allergies As of Date: 03/30/2017 (No Known Allergies) Date Reviewed: 01/10/2017 Reviewed by: Raven Conklin Ma - Fully Assessed Reason for Visit: Lab Orders [1688] Primary Visit Diagnosis:Malignant neoplasm of thyroid gland (HCC) [C73] Other Visit Diagnosis:Postsurgical hypothyroidism [E89.0] Order(s):T4 FREE/FREE THYROX [SQFT4] Order #: [id number] FUTURE TSH BLD [SQTSH] Order #: [id number] FUTURE Prescriptions as of 03/30/2017 Sig: LEVOTHYROXINE 137 MCG TABLET Take 1 tablet by mouth once d* TOBRAMYCIN 0.3 %-DEXAMETHASON* Use 1 Drop in the left eye fo* EFFEXOR ORAL Take 100 mg by mouth once maynor* CHOLECALCIFEROL (VITAMIN D3) * Take 1 capsule by mouth once * ALPRAZOLAM 0.5 MG TABLET Take 1 tablet by mouth once d* ZESTRIL 5 MG TABLET Take one(1) tablet daily. LOVASTATIN 20 MG TABLET Take one(1) tablet daily with* Problem List As Of Date 03/30/2017 Noted Resolved MALIGN NEOPL THYROID [C73] INVALID FOR* Vitamin D Deficiency [E55.9] INVALID FOR* Urge urinary incontinence [N39.41] INVALID FOR* Overactive bladder [N32.81] INVALID FOR* Postsurgical hypothyroidism [E89.0] INVALID FOR* Episcleritis of left eye [H15.102] INVALID FOR* Encounter Status:Closed by ALBERTO MEJIA MD on 05/18/17 BMP Collected: 03/04/2017 Status: F Source: [facility] 11:43 AM [facility] REPOSITORY TYPE CODE TESTS RESULT OUT OF RANGE REFERENCE UNITS LAB [id number](L 70-99 mg/dL [facility]) Glucose Normal Lvl 96 LAB [id number](L 8.4-10.2 mg/dL [facility]) Calcium Normal Lvl 9.0 LAB [id number](L 136-145 mEq/L OINC) Sodium Normal Lvl 142 LAB [id number](L 3.5-5.1 mEq/L OINC) Normal Potassium Lvl 3.7 LAB [id number](L 98-107 mEq/L OINC) Chloride Normal 104 LAB [id number](L 24.0-30.0 mEq/L OINC) CO2 Normal 29.4 LAB [id number](L 7-18 mg/dL OINC) BUN Normal 12 LAB [id number](LO 0.6-1.3 mg/dL INC) Normal Creatinine 0.7 LAB [id number](L 5.4-30.0 ratio OINC) Normal BUN/Creat Ratio 17.1 Performed By: #### [id number] #### LANDEN ID[address]me5 [place] [address] EGFR Collected: 03/04/2017 Status: F Source: [facility] 11:43 AM [facility] REPOSITORY Order Comment: Order added by Discern Expert. TYPE CODE TESTS RESULT OUT OF RANGE REFERENCE UNITS LAB [id number](LO mL/min/1.73 INC) m2 Normal eGFR >60 LAB [id number](LO mL/min/1.73 INC) m2 Normal eGFR AA >60 Performed By: #### [id number] #### [place] [address] [place] [address] ALLERGIES ALLERGIES DATE TYPE / CODE NAME / CODE REACTION SEVERITY SOURCE Drug NO KNOWN [facility] Class/90761 ALLERGIES Three Repository 1003(SNOMED CT) Drug NO KNOWN [facility] Class/18642 ALLERGIES Main [place] 1003(SNOMED Repository CT) Drug/734337 No Known Faith 003(SNOMED [facility]ergies [facility] System Repository Drug/369360 No Known Faith 003(SNOMED Medication [facility]) Allergies System Repository ENCOUNTERS ENCOUNTERS ADMIT/DISCHARGE ACCOUNT NUMBER ADMITTING ENCOUNTER LOCATION SOURCE CLASS 02/06/2018 [id number] Ambulatory [facility] ding:LAB.FUT Repository URE 01/26/2018 [id number] [facility] ding:[place] Repository nt Medic 01/26/2018/01/27/[id number] ding:[place] Repository nt MedicRoom: Room 3 01/21/2018/01/22/[id number] ding:[facility] Repository 01/21/2018 [id number] Ambulatory [address] [place] [address] Repository 01/19/2018/01/20/[id number] ding:[facility] Repository 01/19/2018/01/20/[id number] [address] ding:[facility] Repository 01/19/2018 [id number] Ambulatory [address] [place] [address] Repository 01/19/2018 [id number] Ambulatory [address] [place] [address] Repository 12/26/2017/12/27/[id number] ding:[facility] Repository 12/26/2017/12/27/19 [id number] Jessa [address] g:[facility] Repository 12/26/2017 [id number] Ambulatory [address] [place] [address] Repository 12/15/2017/12/16/19 [id number] [place], Ambulatory [place] [address] Olaf May g:[facility] Repository 12/10/2017/12/11/19 [id number] [place], Ambulatory [address] ding:[place] Repository nt MedicRoom: Room 1 11/19/2017/11/20/19 [id number] No Doctor Ambulatory [address] [place] ding:[facility] B Repository 11/19/2017 [id number] Ambulatory [address] [place] [address] Repository 11/19/2017 [id number] Ambulatory Building:[facility] R Repository 11/18/2017/11/19/19 [id number] [place], [address] ding:[facility] Repository 11/18/2017 [id number] Ambulatory [address] [place] [address] Repository 10/09/2017/10/10/[id number] ding:[place] Repository nt Medic 10/09/2017 [id number] [facility] ding:[place] Repository nt Medic 10/09/2017/10/10/19 [id number] [place], [address] ding:[place] Repository nt MedicRoom: Room 1 10/08/2017/10/09/19 [id number] [place], [address] ding:[facility] Repository 10/08/2017 [id number] Ambulatory [address] [place] [address] Repository 09/19/2017/09/20/19 [id number] Carmen Maldonado Ambulatory [address] ding:[place] Repository nt MedicRoom: Room 2 09/18/2017/09/19/19 [id number] Ambulatory Building:[address] One Repository 09/18/2017 [id number] Kenia Crabtree [facility] Dr. Alberto S [facility] Repository 09/18/2017/09/19/19 [id number] Ambulatory Building:[place] [address] [address] Three R Repository 09/09/2017/09/10/19 [id number] [place], Ambulatory Bryan Faith[address] ding:[place] Repository nt MedicRoom: Room 3 09/04/2017/09/05/19 [id number] [place], Ambulatory Bryan Faith[address] ding:[place] Repository nt MedicRoom: Room 2 08/18/2017/08/19/[id number] ding:[facility] Repository 08/18/2017/08/19/[id number] System :[facility] Repository om: Room 5 08/18/[id number] Repository 07/22/2017 [id number] Ambulatory [facility] Repository 07/22/2017/07/24/19 [id number] Ambulatory [address] Repository 07/17/2017/07/18/19 [id number] [place] [address] Olaf May g:[facility] Repository 07/16/2017 [id number] Ambulatory [facility] Repository 05/23/2017/05/24/19 [id number] Ambulatory [address] Repository 03/27/2017/03/27/19 [id number] Ambulatory [address] ding:[place] Repository nt Medic 03/07/2017/03/07/20 [id number] Ambulatory [address] ding:[place] Repository nt MedicRoom: Room 3 03/04/2017/03/04/20 [id number] [place] [address] [place] [address] ding:[facility] Repository PAYERS PAYERS ENCOUNTER GUARANTOR PAYER SUBSCRIBER SOURCE 02/06/2018 DEB Moreno Primary Insurance:JOHANNA OLIVIA Henriquezoster [id number] [place] [address] BRINDLEDOB: [place] Number: [id number] 40183Oxz: (863) [id number] Repository [phone] (HP) Date:9414-01-67ZC [address]NOPXMZTJ, [place] [address]YM: 02/06/2018 Secondary NOT GIVENUNK Nba Insurance:SELF PAY [facility] INSURANCEPolicy Number: Hospital Effective Repository Date:2018-02-05 01/26/2018 DEB Moreno Primary Insurance:1500 OLIVIA Barajas BRINDLEDOB: Wing KILPATRICK BRINDLEDOB: [facility] E [facility] [id number] [address] [place] [address], Number: Effective E [address] [place] [address], Repository [place] Date:2018-01-26 - [place] [id number]: [phone]: 9086-79-02Vlmw Name:CD:[id number] O (HP)Tel: (000) (HP)Tel: (419) [address]HRGFEOQQR, [place] 000-0000 (WP) [phone] (WP) [phone]: 01/26/2018 DEB Moreno Primary Insurance:1500 OLIVIA Baarjas BRINDLEDOB: Wing KILPATRICK BRINDLEDOB: [facility] E [facility] [id number] [place] [address], Number: Effective E [address] [place] [address], Repository [place] Date:2018-01-26 - [place] [id number]: [address]Eql: 5222-50-68Ojuk Name:CD:[id number] O (HP)Tel: (000) (HP)Tel: (419) [address]UVWLUXZOG, [place] 000-0000 (WP) [phone] (WP) [phone]: 01/21/2018 DEB Moreno Primary OLIVIA Barajas BRINDLEDOB: Insurance:COMMERCIAL BRINDLEDOB: [facility] E INSURANCEPolicy Number: [id number] System [address] [place] [address], Effective E [address] [place] [address], Repository [place] Date:2018-01-21 - [place] [id number]: [address]Mqc: 3154-68-47Lsbe [phone] Name:CD:[id number] BOX (HP)Tel: (000) (HP)Tel: (201) 027165Spjjvcto, [place] 000-0000 (WP) [phone] (WP) [phone]: 01/21/2018 DEBKIKE Rashid OLIVIA BRINDLEDOB: [place] BRINDLEDOB: Insurance:[employer] [id number] [facility] [place] [facility] E icy Number: [address], Repository [address] [place] [address], [id number] [id number] [place] Date:Plan Name:[place] [id number]: () 01/19/2018 DEB C Primary OLIVIA A Faith BRINDLEDOB: Insurance:COMMERCIAL BRINDLEDOB: [facility] E INSURANCEPolicy Number: [id number] [address], Effective E [address] [place] [address], Repository [place] Date:2018-01-19 - [place] [id number]: [address]Ify: 4020-36-00Pxiu [phone] Name:CD:[id number] BOX ()Tel: (000) (HP)Tel: (280) 063131Gqjyvhsu, [place] 000-0000 (WP) [phone] (WP) [address]RH: 01/19/2018 DEB C Primary OLIVIA A Faith BRINDLEDOB: Insurance:COMMERCIAL BRINDLEDOB: [facility] E INSURANCEPolicy Number: [id number] [address] [place] [address], Effective E [address] [place] [address], Repository [place] Date:2018-01-16 - [place] [id number]: [address]Fya: 8540-78-16Zyxx Name:CD:[id number] BOX (HP)Tel: (000) (HP)Tel: (374) 909423Egyzsqdp, [place] 000-0000 (WP) [phone] (WP) [address]PF: 01/19/2018 DEB Primary OLIVIA BRINDLEDOB: [facility]: Insurance:CommercialPol [id number] Hospitals E icy Number: E [facility], Repository [address] [place] [address], [id number] [place] [id number] [place] Date:Plan Name:[place] [id number]: () 01/19/2018 DEB C Primary Insurance:JOHANNA OLIVIA BRINDLEDOB: [facility] [place] [id number] Hospitals E CorporationPolicy E [facility], Repository [address] [place] [address], Number: [place] [id number] [place] [id number] [id number]: Date:Plan Name:[facility] [address]Xvzxztvp, () [place] [id number]: 12/26/2017 DEB C Primary DEB C Faith BRINDLEDOB: Insurance:COMMERCIAL BRINDLEDOB: [facility] E INSURANCEPolicy Number: [id number] System [address] [place] [address], Effective E [address] [place] [address], Repository [place] Date:2017-12-26 - [place] [address]Xwp: [id number] [address]Pfn: Name:CD:[id number] BOX (HP)Tel: ([phone]) 377270Mgrcteqc, [place] () (WP) [phone]: () [phone] 12/26/2017 DEB C Primary Insurance:1500 DEB C Faith BRINDLEDOB: J Greg KILPATRICK BRINDLEDOB: [facility] E [facility] [id number] [address], Number: Effective E [address] [place] [address], Repository [place] Date:2017-12-26 - [place] [address]Bea: 5772-05-70Srgz [address]Ogz: Name:CD:[id number] O (HP)Tel: (174) [address]TRMPXEBGE, [place] (HP) (WP) [phone]: (WP) [phone] 12/26/2017 DEB Primary Insurance:JOHANNA BAKER BRINDLEDOB: [place] BRINDLEDOB: [place] [id number] Hospitals E [address], Repository [address] [place] [address], Number: [place] [id number] [place] [id number] [id number]: Date:Plan Name:[facility] [address]Kkxwtizd, (HP) [place] [id number]: 12/15/2017 DEB C Primary Insurance:1500 DEB Moreno Faith BRINDLEDOB: Wing MACKAYLEDOB: [facility] E [facility] [id number] [address], Number: Effective E [address] [place] [address], Repository [place] Date:2017-12-15 - [place] [address]Pms: 7068-19-38Rkij [address]Dka: Name:CD:[id number] O (HP)Tel: (235) [address]SDKKMVSCS, [place] (HP) (WP) [phone]: (WP) [phone] 12/10/2017 DEB C Primary Insurance:1500 OLIVIA Barajas BRINDLEDOB: Wing YUINDLEDOB: [facility] E [facility] [id number] System [address] [place] [address], Number: Effective E [address] [place] [address] [place] Date:2017-12-10 - [place] [id number]: [address]Xhy: 9707-00-73Fyar Name:CD:[id number] O (HP)Tel: (000) (HP)Tel: (714) [address]YCTZRTKYS, [place] 000-0000 (WP) [phone] (WP) [phone]: 11/19/2017 EDB [facility] DEB [facility] BRINDLEDOB: Insurance:AIMSPolicy BRINDLEDOB: [facility] E Number: Effective [id number] System [address] [place] [address], Date:2017-12-10 - [address], [facility] [place] 6398-63-77Qxyr [place] [address]Zus: Name:CD:[id number] [address]Rdr: [place], [place] (HP)Tel: [phone]: (HP) (WP) [phone] (WP) 11/19/2017 DEB Primary [facility] BRINDLEDOB: Insurance:CommercialPol BRINDLEDOB: Hospitals E icy Number: [id number] [address], [id number] E [address] [place] [address] Date:Plan Name:Health [place] [id number]: [id number]: (HP) (HP) 11/19/2017 DEB [facility] DEB [facility] BRINDLEDOB: Insurance:ANTHEMPolicy BRINDLEDOB: Three Repository Number: [id number] [facility] [id number] [place], [place] Date:2015-03-10 - [place], [place] [address]Gbf: [phone]) [phone] [address] [phone] () 708001ETSILLQ, [place] [address]XR: 11/19/2017 Secondary OLIVIA BRINDLEDOB: [facility] Insurance:COMMERCIALPol [id number] Three Repository icy Number: [facility] [id number] [place], [place] Date: [address] [address]Wvd: (025) 061066VVTKEISU, [place] [phone] (HP) [address]QK: 11/18/2017 DEB C Primary OLIVIA Barajas BRINDLEDOB: Insurance:COMMERCIAL BRINDLEDOB: [facility] E INSURANCEPolicy Number: [id number] System [address] [place] [address], Effective E [address] [place] [address], Repository [place] Date:2017-11-18 - [place] [id number]: [address]Icd: 7902-68-88Jwcz Name:CD:[id number] BOX ()Tel: (000) (HP)Tel: 419 204189Ktnhumow, [place] 000-0000 () [phone] () [address]II: 11/18/2017 DEB Primary OLIVIA BRINDLEDOB: [place] BRINDLEDOB: Insurance:CommercialPol [id number] [facility] [place] [facility] E icy Number: [address], Repository [address] [place] [address], [id number] [place] [id number] [place] Date:Plan Name:Health [id number]: () 10/09/2017 DEB C Primary Insurance:1500 OLIVIA Abbey Barajas BRINDLEDOB: Wing KILPATRICK BRINDLEDOB: [facility] E CORPORATIONPolicy [id number] [address], Number: Effective E [address] [place] [address], Repository [place] Date:2017-09-04 - [place] [id number]: [id number]: 2478-88-39Xzed Name:CD:[id number] O (HP)Tel: (000) (HP)Tel: (419) [address]KERLAMLZL, [place] 000-0000 (WP) [phone] (WP) [address]BW: 10/09/2017 DEB C Primary Insurance:1500 OLIVIA Barajas BRINDLEDOB: Wing Greg FINESSE BRINDLEDOB: [facility] E CORPORATIONPolicy [id number] System [address] [place] [address], Number: Effective E [address] [place] [address], Repository [place] Date:2017-10-09 - [place] [id number]: [id number]: 6469-05-06Spnd Name:CD:[id number] O (HP)Tel: (000) (HP)Tel: (419) [address]FSESKYCPS, [place] 000-0000 (WP) [phone] (WP) [phone]: 10/09/2017 DEB C Primary Insurance:1500 OLIVIA Barajas BRINDLEDOB: Wing Garza KILPATRICK BRINDLEDOB: [facility] E CORPORATIONPolicy [id number] [address] [place] [address], Number: Effective E [address] [place] [address], Repository [place] Date:2017-10-09 - [place] [id number]: [id number]: 3569-59-15Cbwu Name:CD:[id number] O (HP)Tel: (000) (HP)Tel: (419) [address]WVQRJCIVE, [place] 000-0000 (WP) [phone] (WP) [address]TN: 10/08/2017 DEB Moreno Primary OLIVIA Barajas BRINDLEDOB: Insurance:COMMERCIAL BRINDLEDOB: [facility] E INSURANCEPolicy Number: [id number] System [address] [place] [address], Effective E [address] [place] [address], Repository [place] Date:2017-10-08 - [place] [id number]: [id number]: 9667-67-94Dnys Name:CD:[id number] BOX (HP)Tel: (000) (HP)Tel: (324) 236977Dprdpnwb, [place] 000-0000 (WP) [phone] (UZ) [phone]: 10/08/2017 DEB Primary OLIVIA BRINDLEDOB: [place] BRINDLEDOB: Insurance:CommercialPol [id number] [facility] [place] [facility] E icy Number: [facility] Repository [address] [place] [address], [id number] [place] [id number] [place] Date:Plan Name:[facility] [id number]: () 09/19/2017 DEB Moreno Primary Insurance:[address] [place] [address] Abbey Faith BRINDLEDOB: Wing KILPATRICK BRINDLEDOB: [facility] Center[facility] [employer] [id number] [address], Number: Effective E [address] [place] [address], Repository [place] Date:2017-09-19 - [place] [id number]: [id number]: 8348-67-10Kwlr [phone] Name:CD:[id number] O (HP)Tel: (000) (HP)Tel: (419) [address]TZXLBQAKJ, [place] 000-0000 (WP) [phone] () [address]GU: 09/18/2017 Primary Insurance:Wing [facility] BRINDLEDOB: [facility] MyPrepAppPolicy [id number] [facility] Number: [facility] Repository [id number] [place], [place] Date:Plan Name:[facility] [address]Xem: (419) [address]Fhkbqdnm, [phone] (HP) [place] 776681208HS: 09/18/2017 DEB Moreno Primary OLIVIA BRINDLEDOB: [facility] BRINDLEDOB: Insurance:COMMERCIALPol [id number] Three Repository icy Number: [facility] [id number] [place], [facility], [place] Date:[address] [address]Hag: [phone]: [phone]) [phone], [place] [phone] (HP) [phone] (HP) [address]LR: 09/18/2017 Secondary OLIVIA BRINDLEDOB: [facility] Insurance:The GunBoxPol [id number] Three Repository icy Number: [facility] [id number] [place], [place] Date:[address] [address]Fhm: (419) 722268MQYWIFLE, [place] [phone] (HP) [address]PD: 09/09/2017 DBE C Primary Insurance:1500 OLIVIA Barajas BRINDLEDOB: Wing KILPATRICK BRINDLEDOB: [facility] E [email or web address] [id number] System [address] [place] [address], Number: Effective E [address] [place] [address], Repository [place] Date:2017-09-08 - [place] [id number]: [id number]: 7728-64-43Skqi Name:CD:[id number] O (HP)Tel: (000) (HP)Tel: (419) [address]PFJHUBWRU, [place] 000-0000 (WP) [phone] (WP) [phone]: 09/04/2017 DEB C Primary Insurance:1500 OLIVIA Barajas BRINDLEDOB: Wing KILPATRICK BRINDLEDOB: [facility] E [email or web address] [id number] System [address] [place] [address], Number: Effective E [address] [place] [address], Repository [place] Date:2017-07-23 - [place] [id number]: [id number]: 4473-47-95Jlaz Name:CD:[id number] O (HP)Tel: (000) (HP)Tel: (419) [address]NKPTVDNXV, [place] 000-0000 (WP) [phone] (WP) [address]HD: 08/18/2017 DEB C Primary OLIVIA Abbey Barajas BRINDLEDOB: Insurance:COMMERCIAL BRINDLEDOB: [facility] E INSURANCEPolicy Number: [id number] [address] [place] [address], Effective E [address] [place] [address], [facility] [place] Date:2017-08-18 - [place] [id number]: [id number]: 1266-03-77Jedq [phone] Name:CD:[id number] BOX (HP)Tel: (000) (HP)Tel: (031) 606724Qviqseqb, [place] 000-0000 (WP) [phone] (WP) [phone]: 08/18/2017 DEB C Primary Insurance:1500 DEB C Faith BRINDLEDOB: ANTHEMPolicy Number: BRINDLEDOB: [facility] E Effective [id number] [address] [place] [address], Date:2017-07-07 - E [address] [place] [address], [facility] [place] [id number] [place] [id number]: [id number]: Name:CD:[id number] [address]LSFMQTA, [place] ()Tel: (003) (HP)Tel: [phone]) [phone]: (WP) [phone] (WP) [phone] 08/18/2017 DEB Primary [facility] BRINDLEDOB: Insurance:AnthemPolicy BRINDLEDOB: [facility] E Number: [id number] Repository [address] [place] [address], [id number] E [address] [place] [address] Date:Plan Name:[facility] [place] [id number]: [id number]: () (HP) 07/17/2017 DEB C Primary Insurance:1500 OLIVIA Barajas BRINDLEDOB: Wing KILPATRICK BRINDLEDOB: [facility] E CORPORATIONPolicy [id number] [address] [place] [address], Number: Effective E [address] [place] [address], Repository [place] Date:2017-07-17 - [place] [id number]: [id number]: 6533-92-38Knqw Name:CD:[id number] O (HP)Tel: (000) (HP)Tel: (419) [address]QEUZPUSMT, [place] 000-0000 (WP) [phone] (WP) [phone]: 03/27/2017 DEB C Primary Insurance:1500 DEB Barajas BRINDLEDOB: ANTHEMPolicy Number: BRINDLEDOB: [facility] E Effective [id number] System [address] [place] [address], Date:2017-03-07 - E [address] [place] [address], Repository [place] [id number] [place] [id number]: [id number]: Name:CD:[id number] O BOX SAVANNAH VASQUEZ (HP)Tel: (680) (HP)Tel: ([phone]) [phone]: (WP) [phone] (WP) [phone] 03/07/2017 DEB C Primary Insurance:1500 DEB Barajas BRINDLEDOB: ANTHEMPolicy Number: BRINDLEDOB: [facility] E Effective [id number] [address] [place] [address], Date:2017-03-04 - [address] [place] [address], Repository [place] [id number] [place] [id number]: [id number]: Name:CD:[id number] O BOX SAVANNAH VASQUEZ (HP)Tel: (730) (HP)Tel: [phone]) [phone]: (WP) [phone] (WP) [phone] 03/04/2017 DEB C Primary DEB C Faith BRINDLEDOB: Insurance:ANTHEMPolicy BRINDLEDOB: [facility] E Number: Effective [id number] System [address] [place] [address], Date:2017-03-[address] [place] [address], Repository [place] [id number] [place] [id number]: [id number]: Name:Kenton CAMARENA 786362TZENANT, [place] ()Tel: (823) (HP)Tel: [phone]: [phone] (WP) [phone] (WP)
--- OUTSIDE RECORDS SUMMARY | 2018-04-03 15:36 | XMS RPT_ITS ---
:1965 Author Organization OHIP Care Team Providers Name Role Phone ALBERTO CRABTREE Attending Unavailable ALBERTO MEJIA Referring Unavailable ALBERTO MEJIA Referring Unavailable ALBERTO MEJIA Attending Unavailable OLGA MARES S Referring Unavailable ALBERTO MEJIA Referring Unavailable Dr. Alberto Crabtree Admitting Unavailable Dr. Alberto Crabtree Attending Unavailable Alberto Mejia Attending Unavailable Alberto Mejia Referring Unavailable , OLGA Primary Care Unavailable Isis Carcamo NP-C Consulting Unavailable ALBERTO CRABTREE Attending Unavailable , OLGA S. Primary Care Unavailable ALBERTO CRABTREE Attending Unavailable ROYAL, OLGA S. Primary Care Unavailable Potosi, Olga S Attending Unavailable Potosi, Olga S Primary Care Unavailable Potosi, Olga S Admitting Unavailable Potosi, Olga S Attending Unavailable Potosi, Olga S Primary Care Unavailable Potosi, Olga S Attending Unavailable Potosi, Olga S Primary Care Unavailable KangSantos campos Attending Unavailable [place], Olga S Primary Care Unavailable Olaf Hurtado Admitting Unavailable NewbillOlaf Attending Unavailable [place]osi, Olga S Primary Care Unavailable Potosi, Olga S Attending Unavailable Potosi, Olga S Primary Care Unavailable Potosi, Olga S Admitting Unavailable Santos Kapadia Admitting Unavailable KangSantos campos Attending Unavailable Potosi, Olga S Primary Care Unavailable KangSantos campos Attending Unavailable Potosi, Olga S Primary Care Unavailable KangSantos campos Admitting Unavailable Potosi, Olga S Attending Unavailable Potosi, Olga S Primary Care Unavailable Potosi, Olga S Attending Unavailable Potosi, Olga S Primary Care Unavailable Potosi, Olga S Admitting Unavailable Carmen Maldonado Attending Unavailable Potosi, Olga S Primary Care Unavailable Carmen Maldonado Admitting Unavailable Potosi, Olga S Admitting Unavailable Potosi, Olga S Attending Unavailable Potosi, Olga S Primary Care Unavailable Potosi, Olga S Attending Unavailable Potosi, Olga S Primary Care Unavailable Potosi, Olga S Admitting Unavailable Potosi, Olga S Attending Unavailable Potosi, Olga S Primary Care Unavailable StadnickAlberto S Admitting Unavailable StadnickAlberto S Attending Unavailable Potosi, Olga S Primary Care Unavailable Potosi, Olga S Attending Unavailable Potosi, Olga S Primary Care Unavailable Potosi, Olga S Admitting Unavailable No Doctor Assigned, Nodr Admitting Unavailable No Doctor Assigned, Nodr Attending Unavailable Potosi, Olga S Primary Care Unavailable SunlOlaf Admitting Unavailable NewbillOlaf Attending Unavailable Potosi, Olga S Primary Care Unavailable GermainJaclynd Admitting Unavailable GermainJaclynd Attending Unavailable Potosi, Olga S Primary Care Unavailable GermainJaclynd Admitting Unavailable Germain, Charan Attending Unavailable Potosi, Olga S Primary Care Unavailable Potosi, Olga S Admitting Unavailable Potosi, Olga S Attending Unavailable Potosi, Olga S Primary Care Unavailable Potosi, Olga S Attending Unavailable Potosi, Olga S Primary Care Unavailable Potosi, Olga S Admitting Unavailable Potosi, Olga S Admitting Unavailable Potosi, Olga S Attending Unavailable Potosi, Olga S Primary Care Unavailable Potosi, Olga S Attending Unavailable Potosi, Olga S Primary Care Unavailable PROBLEMS PROBLEMS DATE TYPE CONDITION / CODE ATTENDING STATUS SOURCE 09/18/2017 Admitting Encounter for ALBERTO CRABTREE Active [facility] One diagnosis general adult EVI Repository medical examination without abnormal findings / Z00.00(ICD-10) 09/18/2017 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 Three Repository rheumatoid factor, unspecified / M05.9(ICD-10) 07/22/2017 Active Unknown / ALBERTO MEJIA Active [facility] UNK(Unknown) A [place] Repository 09/18/2006 Active Malignant NA Active [facility] neoplasm of [place] thyroid gland / Repository C73(ICD-10) PROCEDURES PROCEDURES No Procedure Records FoundRESULTS RESULTS THYROID STIM HORMONE Collected: 02/06/2018 Status: F Source: NBA (TSH) 3:58 PM [facility] [place] [place] REPOSITORY TYPE CODE TESTS RESULT OUT OF RANGE REFERENCE UNITS LAB L501.9520 0.358-3.74 uIU/mL High TSH 10.20 Performed By: #### L501.9520, L506.0400 #### [facility] [address], [place], [id number] T4 FREE DIRECT Collected: 02/06/2018 Status: F Source: NBA 3:58 PM [facility] [place] [place] REPOSITORY TYPE CODE TESTS RESULT OUT OF RANGE REFERENCE UNITS LAB L506.0400 0.76-1.46 ng/dL Normal T4 FREE 1.18 DIRECT Performed By: #### L501.9520, L506.0400 #### [facility] [address], [place], [address] THYROGLOBULIN W/ANTI-TG Collected: 02/06/2018 Status: F Source: NBA AB 3:58 PM [facility] [place] [place] REPOSITORY TYPE CODE TESTS RESULT OUT OF RANGE REFERENCE UNITS LAB L3300.7025 0.0-0.9 IU/mL Normal ANTI-TG < 1.0 AB Result Comment: Thyroglobulin Antibody measured by [facility] [place] [facility] L3400.1030 1.5-38.5 ng/mL Low THYROGLOB [...] is 0.1 ng/mL Thyroglobulin measured by [facility] [place] [facility] Performed at: - [facility] [address] [id number] Network Pricing Consultant: Bobby Watkins PhD, Phone: [phone] Performed By: #### L3300.6560 #### [facility] (refer to report for specific site) refer to report for address and phone number BMP Collected: 01/21/2018 Status: F Source: [facility] 10:10 AM [facility] REPOSITORY TYPE CODE TESTS RESULT OUT OF RANGE REFERENCE UNITS LAB [id number](L 70-99 mg/dL OINC) High Glucose Lvl 116 LAB 72753970(L 6-23 mg/dL OINC) BUN Normal 10 LAB 9196009(LO 0.5-1.1 mg/dL INC) Normal Creatinine 0.7 LAB 58011262(L 5.4-30.0 ratio OINC) Normal BUN/Creat Ratio 14.3 LAB 02471438(L 8.6-10.3 mg/dL OINC) Calcium Normal Lvl 9.3 LAB 61498995(L 136-145 mEq/L OINC) Sodium Normal Lvl 142 LAB [id number](L 3.5-5.3 mEq/L OINC) Normal Potassium Lvl 3.5 LAB 22895096(L 98-107 mEq/L OINC) Chloride Normal 106 LAB 89257627(L 21.0-32.0 mEq/L OINC) CO2 Normal 28.0 Performed By: #### [id number] #### [facility] [place] [address] EGFR Collected: 01/21/2018 Status: F Source: [facility] 10:10 AM [facility] REPOSITORY Order Comment: Order added by Discern Expert. TYPE CODE TESTS RESULT OUT OF RANGE REFERENCE UNITS LAB [id number](LO mL/min/1.73 INC) m2 Normal eGFR >60 LAB 25340381(LO mL/min/1.73 INC) m2 Normal eGFR AA >60 Performed By: #### [id number] #### [facility] [address] [place], [place] [id number] HEP FUNC PANEL Collected: 01/21/2018 Status: F Source: [facility] 10:10 AM [facility] REPOSITORY TYPE CODE TESTS RESULT OUT OF RANGE REFERENCE UNITS LAB [id number](L 7-45 Int._Unit/L OINC) High ALT 59 LAB 85112525(L 9-39 Int._Unit/L OINC) High AST 43 LAB 17591739(L 3.4-5.0 gm/dL OINC) Normal Albumin Lvl 4.4 LAB 98207415(L 2.0-4.0 G/DL OINC) Normal Globulin 3.0 LAB 72588603(L 1.1-1.9 ratio OINC) Normal A/G Ratio 1.6 LAB 95300555(L 33-110 Int._Unit/L OINC) Normal Alk Phos 62 LAB [id number](L 0.00-0.30 mg/dL OINC) Normal Bili Direct 0.08 LAB 38997282(L OINC) Normal Bili Indirect 0.4 Result Comment: No established ranges available for the Indirect Biliruben. LAB 48028910(LOINC) 0.0-1.2 mg/dL Normal Bili Total 0.5 LAB 41967451(LOINC) 6.4-8.2 gm/dL Normal Total Protein 7.1 Performed By: #### [id number] #### [facility] [employer] [address] [place], [place] [id number] LIPID PROFILE Collected: 01/21/2018 Status: F Source: [facility] 10:10 AM [facility] REPOSITORY TYPE CODE TESTS RESULT OUT OF RANGE REFERENCE UNITS LAB [id number](LO 0-199 mg/dL INC) High Chol 212 Result Comment: TOTAL CHOLEESTEROL: <200 NORMAL 200 - 239 BORDERLINE HIGH >240 HIGH LAB 87246461(LOINC) 40-60 mg/dL Normal HDL 51 LAB 71261828(LOINC) 0-130 mg/dL Normal LDL 119 Result Comment: <100 OPTIMAL 100-129 NEAR / ABOVE OPTIMAL 130-159 BORDERLINE HIGH 160-189 HIGH >190 VERY HIGH CALC LDL NOT VALID WHEN TRIGLYCERIDE IS >400 MG/DL LAB [id number](LOINC) 0-149 mg/dL High Trig 212 Result Comment: AGE DESIRABLE BORDERLINE HIGH 91 D - 9 Y 0 - 74 75 - 99 > 100 10 - 19 Y 0 - 89 90 - 129 > 130 20 -24 Y 0 - 114 115 - 149 > 150 > 25 0 - 149 150 - 199 200 - 499 LAB 47639925(LOINC) 0-40 mg/dL High VLDL 42 Performed By: #### [id number] #### [facility] [employer] [address] [place] [address] HGBA1C Collected: 01/21/2018 Status: F Source: [place] 10:10 AM [facility] REPOSITORY TYPE CODE TESTS RESULT OUT OF RANGE REFERENCE UNITS LAB 346105680( 4.0-6.3 % LOINC) Normal Hemoglobin A1c 6.2 Performed By: #### [id number] #### L[facility] Chemistry Manual Subsection [address] [place] [address] MA MAMM SCREEN W/CAD Observed: 01/19/2018 Status: F Source: [place] IF PERFORMED BILAT 1:03 PM [facility] REPOSITORY Exam Date/Time: 01/19/2018 13:12 EST Reason for Exam: SCREENING;Screening Report STUDY: Digital mammography screening; 01/19/2018 1:12 pm ACCESSION NUMBER(S): [id number] ORDERING CLINICIAN: Santos Kapadia INDICATION: Screening. COMPARISON: [...] 2 VIEWS Observed: 12/26/2017 Status: F Source: [facility] 11:40 AM [facility] REPOSITORY Exam Date/Time: 12/26/2017 11:50 EDT Reason for Exam: Cough Report STUDY: XR Chest 2 Views; 12/26/2017 11:50 am INDICATION: Cough. COMPARISON: Chest x-ray 03/08/2014 ACCESSION NUMBER(S): [id number] ORDERING CLINICIAN: Charan Germain FINDINGS: Small lung volumes. The lungs appear clear without pleural effusion. Normal heart size, mediastinum, kailee, pulmonary vasculature. IMPRESSION: No active disease in the chest. FINAL REPORT Dictated: 12/26/2017 6:27 pm Paul Mondragon MD Signed (Electronic Signature): 12/26/2017 6:27 pm Signed by: Paul Mondragon MD Technologist: LOUIE HEP FUNC PANEL Collected: 11/18/2017 Status: F Source: [facility] 2:22 PM [facility] REPOSITORY TYPE CODE TESTS RESULT OUT OF RANGE REFERENCE UNITS LAB [id number](L 10-40 Int._Unit/L OINC) High ALT 59 LAB 20023171(L 10-42 Int._Unit/L OINC) High AST 48 LAB 17419639(L 3.2-5.0 G/DL OINC) Normal Albumin Lvl 4.6 LAB 54639923(L 2.0-4.0 G/DL OINC) Normal Globulin 3.1 LAB 84003916(L 1.1-1.9 ratio OINC) Normal A/G Ratio 1.5 LAB 31299146(L 42-121 Int._Unit/L OINC) Normal Alk Phos 59 LAB 57526824(L .00-.20 mg/dL OINC) Normal Bili Direct <.10 LAB 92377661(L OINC) Normal Bili Indirect >0.6 Result Comment: No established ranges available for the Indirect Biliruben. LAB 89888327(LOINC) 0.2-1.0 mg/dL Normal Bili Total 0.7 LAB 50185663(LOINC) 6.4-8.3 G/DL Normal Total Protein 7.7 Performed By: #### [id number] #### [facility] [place] [address] CBC W/ AUTO DIFF Collected: 10/08/2017 Status: F Source: [facility] 8:26 AM [facility] REPOSITORY TYPE CODE TESTS RESULT OUT OF RANGE REFERENCE UNITS LAB [id number](L 3.6-11.0 E3/mcL OINC) Normal WBC 9.9 LAB 76650604(L 3.90-5.40 E6/mcL OINC) Normal RBC 4.17 LAB 63797877(L 12.0-16.0 G/DL OINC) Normal Hgb 12.6 LAB 83760279(L 36.0-48.0 % OINC) Normal Hct 36.6 LAB 82971484(L 11.5-14.5 % OINC) Normal RDW 14.1 LAB 25486794(L 27.0-31.0 pg OINC) Normal MCH 30.2 LAB [id number](L 33.0-37.0 G/DL OINC) Normal MCHC 34.4 LAB 64963831(L 78.0-100.0 fL OINC) Normal MCV 87.8 LAB [id number](L 7.4-11.0 fL OINC) Normal MPV 8.5 LAB [id number](L 130-400 E3/mcL OINC) Normal Platelet 373 Performed By: #### [id number] #### [facility] [place] [id number] AUTO DIFF Collected: 10/08/2017 Status: F Source: [facility] 8:26 AM [facility] REPOSITORY Order Comment: Order Added by Discern Expert. TYPE CODE TESTS RESULT OUT OF RANGE REFERENCE UNITS LAB [id number](L 37.0-75.0 % OINC) Normal Neutro Auto 67.3 LAB 96049573(L 20.0-55.0 % OINC) Normal Lymph Auto 23.3 LAB 09481530(L 0.0-10.0 % OINC) Normal [place] Auto 6.4 LAB 53876988(L 0.0-11.0 % OINC) Normal Eos Auto 2.4 LAB 72487342(L 0.0-2.0 % OINC) Normal Basophil Auto 0.6 LAB 57772890(L 1.4-6.5 E3/mcL OINC) High Neutro 6.6 Absolute LAB 58137354(L 1.2-3.4 E3/mcL OINC) Normal Lymph Absolute 2.3 LAB 81876291(L 0.0-0.7 E3/mcL OINC) Normal [place] Absolute 0.6 LAB 58233556(L 0.0-0.7 E3/mcL OINC) Normal Eos Absolute 0.2 LAB 06648143(L 0.0-0.2 E3/mcL OINC) Normal Basophil 0.1 Absolute Performed By: #### [id number] #### [facility] [address] [place] [address] TSH Collected: 10/08/2017 Status: F Source: [facility] 8:26 AM [facility] REPOSITORY TYPE CODE TESTS RESULT OUT OF RANGE REFERENCE UNITS LAB [id number](LO 0.30-5.60 mIU/m INC) Normal TSH 2.48 Performed By: #### [id number] #### [facility] [address] [place] [address] BMP Collected: 10/08/2017 Status: F Source: [facility] 8:26 AM [facility] REPOSITORY TYPE CODE TESTS RESULT OUT OF RANGE REFERENCE UNITS LAB [id number](L 70-99 mg/dL OINC) High Glucose Lvl 111 LAB 14204177(L 7-18 mg/dL OINC) BUN Normal 12 LAB 3373039(LO 0.6-1.3 mg/dL INC) Normal Creatinine 0.7 LAB 71175593(L 5.4-30.0 ratio OINC) Normal BUN/Creat Ratio 17.1 LAB 92997068(L 8.4-10.2 mg/dL OINC) Calcium Normal Lvl 8.9 LAB 72922192(L 136-145 mEq/L OINC) Sodium Normal Lvl 139 LAB 32945841(L 3.5-5.1 mEq/L OINC) Low Potassium Lvl 3.2 LAB 59380324(L 98-107 mEq/L OINC) Chloride Normal 103 LAB [id number](L 24.0-30.0 mEq/L OINC) CO2 Normal 27.2 Performed By: #### [id number] #### [place] [address] EGFR Collected: 10/08/2017 Status: F Source: [facility] 8:26 AM [facility] REPOSITORY Order Comment: Order added by Discern Expert. TYPE CODE TESTS RESULT OUT OF RANGE REFERENCE UNITS LAB [id number](LO mL/min/1.73 INC) m2 Normal eGFR >60 LAB 52642577(LO mL/min/1.73 INC) m2 Normal eGFR AA >60 Performed By: #### [id number] #### [place] [address] ALT Collected: 10/08/2017 Status: F Source: [facility] 8:26 [facility] REPOSITORY TYPE CODE TESTS RESULT OUT OF RANGE REFERENCE UNITS LAB [id number](LO 10-40 Int._Unit/L INC) High ALT 74 Performed By: #### [id number] #### [place] [address] AST Collected: 10/08/2017 Status: F Source: [facility] 8:26 AM [facility] REPOSITORY TYPE CODE TESTS RESULT OUT OF RANGE REFERENCE UNITS LAB [id number](LO 10-42 Int._Unit/L INC) High AST 59 Performed By: #### [id number] #### [facility] [address] [place] [address] LIPID PROFILE Collected: 10/08/2017 Status: F Source: [facility] 8:26 AM [facility] REPOSITORY TYPE CODE TESTS RESULT OUT OF RANGE REFERENCE UNITS LAB [id number](LO 50-200 mg/dL INC) High Chol 254 Result Comment: TOTAL CHOLEESTEROL: <200 NORMAL 200 - 239 BORDERLINE HIGH >240 HIGH LAB 22737020(LOINC) >=41 mg/dL Normal HDL 44 LAB 11502342(LOINC) 0-130 mg/dL High LDL 141 Result Comment: <100 OPTIMAL 100-129 NEAR / ABOVE OPTIMAL 130-159 BORDERLINE HIGH 160-189 HIGH >190 VERY HIGH CALC LDL NOT VALID WHEN TRIGLYCERIDE IS >400 MG/DL LAB 55766991(LOINC) 35-150 mg/dL High Trig 346 Result Comment: <150 NORMAL 150-199 BORDERLINE HIGH 200-499 HIGH >500 VERY HIGH LAB 06380574(INC) Normal VLDL 69 Performed By: #### [id number] #### [facility] [address] [place], [place] [address] CBC WITH DIFF Collected: 09/18/2017 Status: F Source: [facility] 10:39 AM [facility] REPOSITORY TYPE CODE TESTS RESULT OUT [...] Unless otherwise noted, all testing performed [address], [place] [address] CLIA: [id number] Orthodontist Assistant: Juan Antonio Florian, M.D. CRP, C-REACTIVE Collected: 09/18/2017 Status: F Source: [facility] PROTEIN 10:39 AM [facility] REPOSITORY TYPE CODE TESTS RESULT OUT OF REFERENCE UNITS RANGE LAB CRPQT 0.0-10.0 mg/L High CRP, 13.5 C-Reactive Protein Performed By: #### HEPF, HBSABS, HEPCABS, SEDR, CRPQT, CBCDIF, BUNCR, CCPAB #### Unless otherwise noted, all testing performed by [place] [address] CLIA: [id number] Orthodontist Assistant: Juan Antonio Du M.D. HEPATIC FUNCTION Collected: 09/18/2017 Status: F Source: [facility] PANEL 10:39 AM [facility] REPOSITORY TYPE CODE TESTS RESULT OUT [...] Unless otherwise noted, all testing performed by [place] [address] CLIA: [id number] Orthodontist Assistant: Juan Antonio Du M.D. BUN AND CREATININE Collected: 09/18/2017 Status: F Source: [facility] 10:39 AM [facility] REPOSITORY TYPE CODE TESTS RESULT OUT OF RANGE REFERENCE UNITS LAB BUN 8-25 mg/dL BUN Normal 9 LAB CREA 0.40-1.10 mg/dL Normal Creatinine 0.73 LAB eGFR ml/min/1.7 3sq.m Normal eGFR,NonAfrican- >=60 [place] Result Comment: Non- GFR Calc eGFR is [...] with caution. LAB eGFRB ml/min/1.73sq.m eGFR, Normal -[place] >=60 Result Comment: GFR Calc Performed By: #### HEPF, HBSABS, HEPCABS, SEDR, CRPQT, CBCDIF, BUNCR, CCPAB #### Unless otherwise noted, all testing performed by [place] [address] CLIA: [id number] Orthodontist Assistant: Juan Antonio Du M.D. SED RATE Collected: 09/18/2017 Status: F Source: [facility] 10:39 AM [facility] TYPE CODE TESTS RESULT OUT OF RANGE REFERENCE UNITS LAB SEDR 0-20 MM/hr. Normal Sed Rate 11 Performed By: #### HEPF, HBSABS, HEPCABS, SEDR, CRPQT, CBCDIF, BUNCR, CCPAB #### Unless otherwise noted, all testing performed by [place] [address] CLIA: [id number] Orthodontist Assistant: Juan Antonio Du M.D. CCP ANTIBODIES Collected: 09/18/2017 Status: F Source: [facility] 10:39 AM [facility] REPOSITORY TYPE CODE TESTS RESULT OUT OF RANGE REFERENCE UNITS LAB CCPAB 0.0-20.0 Unit CCP Normal Antibodies 4.7 Result Comment: Reference Ranges: <20Units Negative 20-39Units Weakly Positive 40-59Units Moderative Positive >=60Units Strong Positive Test Performed by [facility] [place] [address] Performed By: #### HEPF, HBSABS, HEPCABS, SEDR, CRPQT, CBCDIF, BUNCR, CCPAB #### Unless otherwise noted, all testing performed by [place] [address] CLIA: [id number] Orthodontist Assistant: Juan Antonio Du M.D. HEPATITIS C ANTIBODY Collected: 09/18/2017 Status: F Source: [facility] 10:39 AM [facility] REPOSITORY TYPE CODE TESTS RESULT OUT OF REFERENCE UNITS RANGE LAB HEPCABS Negative Normal Hepatitis C Negative Antibody Result Comment: Test performed using Claudia ECTOR immunoassay system [place] [address] Performed By: #### HEPF, HBSABS, HEPCABS, SEDR, CRPQT, CBCDIF, BUNCR, CCPAB #### Unless otherwise noted, all testing performed by [place] [address] CLIA: [id number] Orthodontist Assistant: Juan Antonio Du M.D. HEPATITIS B SURFACE Collected: 09/18/2017 Status: F Source: [facility] ABS 10:39 AM [facility] REPOSITORY TYPE CODE TESTS RESULT OUT OF REFERENCE UNITS RANGE LAB HBSABQTS mIU/mL Normal Hepatitis B < 5.0 Surf Ab, Qt Result Comment: REFERENCE VALUE Unvaccinated: <5.0 Vaccinated: >=12.0 Test Performed by: [facility] [address] [place] [address] LAB HBSABS Normal Hepatitis B Negative Surface Abs Result Comment: Patient is presumed to be not immune to infection with HBV. REFERENCE VALUE Unvaccinated: Negative Vaccinated: Positive Performed By: #### HEPF, HBSABS, HEPCABS, SEDR, CRPQT, CBCDIF, BUNCR, CCPAB #### Unless otherwise noted, all testing performed by [place] [address] CLIA: [id number] Orthodontist Assistant: Juan Antonio Du M.D. RHEUMATOID FACTOR Collected: 09/18/2017 Status: F Source: [facility] 10:39 [facility] REPOSITORY TYPE CODE TESTS RESULT OUT OF RANGE REFERENCE UNITS LAB RF Negative Abnormal Rheumatoid Positive Factor LAB RFT Rheumatoid > or = 1:32 Factor Titer Performed By: #### RF #### Unless otherwise noted, all testing performed by [place] [address] CLIA: [id number] Orthodontist Assistant: Juan Antonio Du M.D. M.TUBERCULOSIS BY Collected: 09/18/2017 Status: F Source: [facility] QUANTIFERON 10:39 [facility] REPOSITORY TYPE CODE TESTS RESULT OUT [...] 0.05 Result Comment: Test Performed by: [facility] [address] [place] [address] LAB QFTDEXQE IU/mL Normal TB1 Ag minus -0.01 Nil Result LAB QFTDEXQF IU/mL Normal TB2 Ag minus 0.00 Nil Result Performed By: #### QFT #### Unless otherwise noted, all testing performed by [place] [address] [address] [place], [place] [address] CLIA: [id number] Orthodontist Assistant: Juan Antonio Du M.D. IGP W/HPV RFX Collected: 08/18/2017 Status: F Source: [facility] [id number] 1:11 PM [facility] REPOSITORY Order Comment: Thin Prep. Menopause TYPE CODE TESTS RESULT OUT OF RANGE REFERENCE UNITS LAB [id number](LO INC) Normal See Ref Lab Diagnosis: Report Performed By: #### [id number] #### [place] [address] PATHOLOGY ([facility]) Observed: 08/18/2017 Status: F Source: [facility] 12:00 AM REPOSITORY FINAL GYNECOLOGIC CYTOLOGY REPORT [id number] SPECIMEN ADEQUACY Satisfactory for Evaluation. Endocervical cells/transformation zone component present. GENERAL CATEGORIZATION Negative for Intraepithelial Lesion or Malignancy CLINICAL HISTORY Menopause SPECIMEN (A) SCREENING CERVICAL/ENDOCERVICAL THIN PREP VIAL Performed at [facility], [address] [place] [address] Screened by: Signed Out by: NASIMA AMADO Physical Director Reported: 08/20/2017 Performed By: #### INTEGRITY ANALYST #### [facility] [address] [place] [address] TSH Collected: 07/22/2017 Status: F Source: [place] 3:05 PM [facility] REPOSITORY TYPE CODE TESTS RESULT OUT OF RANGE REFERENCE UNITS LAB TSH 0.400-5.500 uU/mL High TSH 9.820 Performed By: #### TSH, FT4 #### [facility] [address] [place], [place] [address] FREE T4 Collected: 07/22/2017 Status: F Source: [place] 3:05 PM [facility] REPOSITORY TYPE CODE TESTS RESULT OUT OF RANGE REFERENCE UNITS LAB FT4 0.9-1.7 ng/dL Free T4 1.1 Performed By: #### TSH, FT4 #### [facility] [address] [place], [place] [address] PROGRESS Observed: 07/22/2017 Status: COMPLETED Source: [place] 2:41 PM [facility] [place] REPOSITORY HNO ID: [id number] Author: Alberto Mejia Service: (none) Author Type: [...] apparently tumor may be relatively high TG agent producer. Alternatively, her TSI may be causing this? 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 Treatment / Plan: 1) continue on the 150 mcg levothyroxine daily. 2) return to [place] in 6 months, [facility] labs before the visit. Alberto Mejia MD Data Review: Component Latest Ref Rng AND Units 05/23/2017 07/16/2017 Thyroglobulin 1.6 - 59.9 ng/mL 4.6 TG Antibody Screen <14.4 IU/mL 2.3 Free T4 0.9 - 1.7 ng/dL 1.1 TSH 0.400 - 5.500 uU/mL 4.560 History Thyroid CA, on levothyroxine 137 mcg x 6/wk Thyroid CA History Surgery (): total thyroidectomy, Dr. Brunson ([facility]) Pathology (): multifocal papillary, left dominant nodule [...] Allergies CNOV Observed: 07/22/2017 Status: COMPLETED Source: [place] 1:25 PM [facility] REPOSITORY [facility] DEB LOPEZ ([id number]) 1965 F Date Time Provider Department 07/22/17 1:[address] [facility] During your visit today, we recorded [...] apparently tumor may be relatively high TG agent producer. Alternatively, her TSI may be causing this? 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 Treatment / Plan: 1) continue on the 150 mcg levothyroxine daily. 2) return to [place] 6 months, [place] labs before the [...] History Surgery (): total thyroidectomy, Dr. Brunson ([facility]) Pathology (): multifocal papillary, left dominant nodule [...] apparently tumor may be relatively high TG agent producer. Alternatively, her TSI may be causing this? 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 Treatment / Plan: 1) continue on the 150 mcg levothyroxine daily. 2) return to me in 6 months, wi labs before the visit. Alberto Mjeia MD Data Review: Component Latest Ref Rng AND Units 05/23/2017 07/16/2017 Thyroglobulin 1.6 - 59.9 ng/mL 4.6 TG Antibody Screen <14.4 IU/mL 2.3 Free T4 0.9 - 1.7 ng/dL 1.1 TSH 0.400 - 5.500 uU/mL 4.560 Referring Provider: OLGA MARES [[id number]] Allergies As of Date: 07/22/2017 (No Known Allergies) Date Reviewed: 07/22/2017 Reviewed by: Raven Conklin Ma - Fully Assessed Reason for Visit: Thyroid Problem [110] Primary Visit Diagnosis:Malignant neoplasm of thyroid gland (HCC) [C73] Order(s):T4 FREE/FREE THYROX [SQFT4] Order #: [id number] FUTURE TSH BLD [SQTSH] Order #: [id number] FUTURE T4 FREE/FREE THYROX [SQFT4] Order #: [id number] FUTURE TSH BLD [SQTSH] Order #: [id number] FUTURE THYROGLOBULIN BLD [SQTG] Order #: [id number] FUTURE Prescriptions as of 07/22/2017 Sig: LEVOTHYROXINE [...] apparently tumor may be relatively high TG agent producer. Alternatively, her TSI may be causing this? 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 Treatment / Plan: 1) continue on the 150 mcg levothyroxine daily. 2) return to me in 6 months, [facility] labs before the visit. Alberto Mejia MD [...] 07/22/17 THYROGLOBULIN Collected: 07/16/2017 Status: F Source: [place] 10:02 AM [facility] REPOSITORY TYPE CODE TESTS RESULT OUT OF REFERENCE UNITS RANGE LAB THYG 1.6-59.9 ng/mL Thyroglobulin 4.6 Result Comment: Test analyzed by the Siemens Immulite method LAB TGABS <14.4 IU/mL TG Antibody Screen 2.3 Performed By: #### TG #### [facility] [address] [address] FREE T4 Collected: 05/23/2017 Status: F Source: [place] 12:38 PM [facility] REPOSITORY TYPE CODE TESTS RESULT OUT OF RANGE REFERENCE UNITS LAB FT4 0.9-1.7 ng/dL Free T4 1.1 Performed By: #### FT4, TSH #### [facility] [address] [address] TSH Collected: 05/23/2017 Status: F Source: [place] 12:38 PM [facility] REPOSITORY TYPE CODE TESTS RESULT OUT OF RANGE REFERENCE UNITS LAB TSH 0.400-5.500 uU/mL TSH 4.560 Performed By: #### FT4, TSH #### [facility] [address] [address] OBSOLETE Observed: 03/30/2017 Status: COMPLETED Source: [place] 12:00 AM [facility] REPOSITORY Refill (ENLKDC) DEB LOPEZ ([id number]) 1965 F Date Time Provider Department [facility] visit today, we recorded [...] 04/08/17 CNPN Observed: 03/30/2017 Status: COMPLETED Source: [place] 12:00 AM [facility] REPOSITORY Telephone (ENLZhanzuo) DEB LOPEZ ([id number]) 1965 F Date Time Provider Department 03/30/[address] [facility] During your visit today, we recorded the following information about you: Allergies As of Date: 03/30/2017 (No Known Allergies) Date Reviewed: 01/10/2017 Reviewed by: Raven Conklin Ma - Fully Assessed Reason for Visit: Lab Orders [1688] Primary Visit Diagnosis:Malignant neoplasm of thyroid gland (HCC) [C73] Other Visit Diagnosis:Postsurgical hypothyroidism [E89.0] Order(s):T4 FREE/FREE THYROX [SQFT4] Order #: [id number] FUTURE TSH BLD [SQTSH] Order #: [id number] FUTURE Prescriptions as of 03/30/2017 Sig: LEVOTHYROXINE [...] 05/18/17 BMP Collected: 03/04/2017 Status: F Source: [facility] 11:43 AM [facility] REPOSITORY TYPE CODE TESTS RESULT OUT OF RANGE REFERENCE UNITS LAB [id number](L 70-99 mg/dL OINC) Glucose Normal Lvl 96 LAB [id number](L 8.4-10.2 mg/dL OINC) Calcium Normal Lvl 9.0 LAB [id number](L 136-145 mEq/L OINC) Sodium Normal Lvl 142 LAB [id number](L 3.5-5.1 mEq/L OINC) Normal Potassium Lvl 3.7 LAB 13705852(L 98-107 mEq/L OINC) Chloride Normal 104 LAB 55027669(L 24.0-30.0 mEq/L OINC) CO2 Normal 29.4 LAB 92101724(L 7-18 mg/dL OINC) BUN Normal 12 LAB 4794412(LO 0.6-1.3 mg/dL INC) Normal Creatinine 0.7 LAB 15244445(L 5.4-30.0 ratio OINC) Normal BUN/Creat Ratio 17.1 Performed By: #### [id number] #### L[place] [place] [address] EGFR Collected: 03/04/2017 Status: F Source: [facility] 11:43 AM [facility] REPOSITORY Order Comment: Order added by Discern Expert. TYPE CODE TESTS RESULT OUT OF RANGE REFERENCE UNITS LAB 86512492(LO mL/min/1.73 INC) m2 Normal eGFR >60 LAB 58271320(LO mL/min/1.73 INC) m2 Normal eGFR AA >60 Performed By: #### [id number] #### LAND[place] [address] [place] [address] ALLERGIES ALLERGIES DATE TYPE / CODE NAME / CODE REACTION SEVERITY SOURCE Drug NO KNOWN [facility] Class/33801 ALLERGIES Three Repository 1003(SNOMED CT) Drug NO KNOWN [facility] Class/33495 ALLERGIES Main [place] 1003(SNOMED Repository CT) Drug/918837 No Known Roman Catholic 003(SNOMED [facility]ergies [facility] System Repository Drug/533522 No Known Roman Catholic 003(SNOMED Medication [facility]) Allergies System Repository ENCOUNTERS ENCOUNTERS ADMIT/DISCHARGE ACCOUNT NUMBER ADMITTING ENCOUNTER LOCATION SOURCE CLASS 02/06/[id number] [facility] ding:LAB.FUT Repository URE 01/26/2018 [id number] [facility] ding:[place] Repository nt Medic 01/26/2018/01/27/[id number] ding:[place] Repository nt MedicRoom: Room 3 01/21/2018/01/22/[id number] ding:[facility] Repository 01/21/2018 [id number] Ambulatory [address] [place] [address] Repository 01/19/2018/01/20/[id number] ding:[facility] Repository 01/19/2018/01/20/[id number] [address] ding:[facility] IO Repository 01/19/2018 [id number] Ambulatory [address] [place] [address] Repository 01/19/2018 [id number] Ambulatory [address] [place] [address] Repository 12/26/2017/12/27/[id number] ding:[facility] Repository 12/26/2017/12/27/19 [id number] Jessa [address] g:[facility] Repository 12/26/2017 [id number] Ambulatory [address] [place] [address] Repository 12/15/2017/12/16/19 [id number] [place], Ambulatory [address] [place] [address] Olaf May g:[facility] Repository 12/10/2017/12/11/19 [id number] [place], Ambulatory [address] ding:[place] Repository nt MedicRoom: Room 1 11/19/2017/11/20/19 [id number] No Doctor Ambulatory [address] [place] ding:[facility] B Repository 11/19/2017 [id number] Ambulatory [address] [place] [address] Repository 11/19/2017 [id number] Ambulatory Building:[facility] R Repository 11/18/2017/11/19/19 [id number] [place], [address] ding:[facility] Repository 11/18/2017 [id number] Ambulatory [address] [place] [address] Repository 10/09/2017/10/10/[id number] ding:[place] Repository nt Medic 10/09/2017 [id number] [facility] ding:[place] Repository nt Medic 10/09/2017/10/10/19 [id number] [place], [address] ding:[place] Repository nt MedicRoom: Room 1 10/08/2017/10/09/19 [id number] [place], [address] ding:[facility] Repository 10/08/2017 [id number] Ambulatory [address] [place] [address] Repository 09/19/2017/09/20/19 [id number] Carmen Maldonado Ambulatory [address] ding:[place] Repository nt MedicRoom: Room 2 09/18/2017/09/19/19 [id number] Ambulatory Building:[address] One Repository 09/18/2017 [id number] Kenia Crabtree [facility] Dr. Alberto S [facility] Repository 09/18/2017/09/19/19 [id number] Ambulatory Building:[place] [address] [place] Three R Repository 09/09/2017/09/10/19 [id number] [place], Ambulatory [place] [facility] ding:[place] Repository nt MedicRoom: Room 3 09/04/2017/09/05/19 [id number] [place], Ambulatory [place] [facility] ding:[place] Repository nt MedicRoom: Room 2 08/18/2017/08/19/[id number] ding:[facility] Repository 08/18/2017/08/19/[id number] System :[facility] Repository om: Room 5 08/18/[id number] Repository 07/22/2017 [id number] Ambulatory [facility] Repository 07/22/2017/07/24/19 [id number] Ambulatory [address] Repository 07/17/2017/07/18/19 [id number] [address] [address] Olaf May g:[facility] Repository 07/16/2017 [id number] Ambulatory [facility] Repository 05/23/2017/05/24/19 [id number] Ambulatory [address] Repository 03/27/2017/03/27/19 [id number] Ambulatory [address] ding:[place] Repository nt Medic 03/07/2017/03/07/20 [id number] Ambulatory [address] ding:[place] Repository nt MedicRoom: Room 3 03/04/2017/03/04/20 [id number] [place], [facility] [address] [place] [address] ding:[facility] Repository PAYERS PAYERS ENCOUNTER GUARANTOR PAYER SUBSCRIBER SOURCE 02/06/2018 DEB Moreno Primary Insurance:JOHANNA OLIVIA Henriquezoster [id number] [place] [address] BRINDLEDOB: [place], [place] Number: [id number] Hospital 13858Eoz: (398) [id number] Repository [phone] (HP) Date:9492-20-87[address], [place] [address]IK: 02/06/2018 Secondary NOT GIVENUNK Nba Insurance:SELF PAY [facility] INSURANCEPolicy Number: Hospital Effective Repository Date:2018-02-05 01/26/2018 DEB Moreno Primary Insurance:1500 OLIVIA Barajas BRINDLEDOB: Wing KILAPTRICK BRINDLEDOB: [facility] E [facility] [id number] System [address] [place] [address], Number: Effective E [address] [place] [address], Repository [place] Date:2018-01-26 - [place] [id number]: [phone]: 8750-30-19Rilb Name:CD:[id number] O (HP)Tel: (000) (HP)Tel: (419) [address]TDYLDAQMA, [place] 000-0000 (WP) [phone] (WP) [phone]: 01/26/2018 DEB Moreno Primary Insurance:1500 OLIVIA Barajas BRINDLEDOB: Wing KILPATRICK BRINDLEDOB: [facility] E [facility] [id number] [place] [address], Number: Effective E [address] [place] [address], Repository [place] Date:2018-01-26 - [place] [id number]: [phone]: [id number] Name:CD:[id number] O (HP)Tel: (000) (HP)Tel: (419) [address]TDUNACR[address], [place] 000-0000 (WP) [phone] (WP) [phone]: 01/21/2018 DEB Moreno Primary OLIVIA Barajas BRINDLEDOB: Insurance:COMMERCIAL BRINDLEDOB: [facility] E INSURANCEPolicy Number: [id number] [address] [place] [address], Effective E [address] [place] [address], Repository [place] Date:2018-01-21 - [place] [id number]: [phone]: 5669-58-00Qhkn [phone] Name:CD:[id number] BOX (HP)Tel: (000) (HP)Tel: ([phone]) 216918Ljrdrfun, [place] 000-0000 (WP) [phone] (WP) [phone]: 01/21/2018 DEBKIKE Rashid OLIVIA BRINDLEDOB: [place] BRINDLEDOB: Insurance[facility] [id number] [facility] E icy Number: [address], Repository [address] [place] [address], [id number] [place] [id number] [place] Date:Plan Name:[place] [id number]: () 01/19/2018 DEB C Primary OLIVIA A Roman Catholic BRINDLEDOB: Insurance:COMMERCIAL BRINDLEDOB: [facility] E INSURANCEPolicy Number: [id number] [address], Effective E [address] [place] [address], Repository [place] Date:2018-01-19 - [place] [id number]: [phone]: [id number] [phone] Name:CD:[id number] BOX ()Tel: (000) (HP)Tel: ([phone]) 509[address]Okpimkwz, [place] 000-0000 (WP) [phone] (WP) [address]PU: 01/19/2018 DEB C Primary OLIVIA A Roman Catholic BRINDLEDOB: Insurance:COMMERCIAL BRINDLEDOB: [facility] E INSURANCEPolicy Number: [id number] [address] [place] [address], Effective E [address] [place] [address], Repository [place] Date:2018-01-16 - [place] [id number]: [address]Emk: 8160-88-32Vthe Name:CD:[id number] BOX (HP)Tel: (000) (HP)Tel: [phone]) [phone], [place] 000-0000 (WP) [phone] (WP) [address]OZ: 01/19/2018 DEB Primary OLIVIA [facility] Insurance:CommercialPol [id number] Hospitals E icy Number: E [facility], Repository [address] [place] [address], [id number] [place] [id number] [place] Date:Plan Name:[place] [id number]: () 01/19/2018 DEB C Primary Insurance:JOHANNA OLIVIA [facility] [place] [id number] Hospitals E CorporationPolicy E [facility], Repository [address] [place] [address], Number: [place] [id number] [place] [id number] [id number]: Date:Plan Name:[facility] [address]Bnpcjsoy, () [place] [id number]: 12/26/2017 DEB C Primary DEB C Roman Catholic BRINDLEDOB: Insurance:COMMERCIAL BRINDLEDOB: [facility] E INSURANCEPolicy Number: [id number] System [address] [place] [address], Effective E [address] [place] [address], Repository [place] Date:2017-12-26 - [place] [address]Nnd: [id number] [address]Fjs: Name:CD:[id number] BOX (HP)Tel: [phone]) 661108Qlnxhpit, [place] () (WP) [phone]: () [phone] 12/26/2017 DEB C Primary Insurance:1500 DEB C Roman Catholic BRINDLEDOB: J Greg KILPATRICK BRINDLEDOB: [facility] E [facility] [id number] [address], Number: Effective E [address] [place] [address], Repository [place] Date:2017-12-26 - [place] [address]Zxq: 4560-44-55Jhdz [address]Ije: Name:CD:[id number] O (HP)Tel: (205) [address]IUTDFZLKP, [place] (HP) (WP) [phone]: (WP) [phone] 12/26/2017 DEB Primary Insurance:JOHANNA BAKER BRINDLEDOB: [place] BRINDLEDOB: [place] [id number] Hospitals E [address], Repository [address] [place] [address], Number: [place] [id number] [place] [id number] [id number]: Date:Plan Name:[facility] [address]Svkzbcgf, (HP) [place] [phone]: 12/15/2017 DEB C Primary Insurance:1500 DEB Moreno Roman Catholic BRINDLEDOB: Wing MACKAYLEDOB: [facility] E [facility] [id number] [address], Number: Effective E [address] [place] [address], Repository [place] Date:2017-12-15 - [place] [address]Ild: [id number] [address]Brb: Name:CD:[id number] O (HP)Tel: (737) [address]YJQFGAOVW, [place] (HP) (WP) [phone]: (WP) [phone] 12/10/2017 DEB C Primary Insurance:1500 OLIVIA Barajas BRINDLEDOB: Wing YUINDLEDOB: [facility] E [facility] [id number] System [address] [place] [address], Number: Effective E [address] [place] [address] [place] Date:2017-12-10 - [place] [id number]: [phone]: 5634-77-11Zxhi Name:CD:[id number] O (HP)Tel: (000) (HP)Tel: (025) [address]SOSYYBEFN, [place] 000-0000 (WP) [phone] (WP) [phone]: 11/19/2017 DEB [facility] DEB [facility] BRINDLEDOB: Insurance:AIMSPolicy BRINDLEDOB: [facility] E Number: Effective [id number] System [address] [place] [address], Date:2017-12-10 - [address], [facility] [place] [id number] [place] [address]Rwh: Name:CD:[id number] [address]Qzm: [place], [place] (HP)Tel: [phone]: (HP) (WP) [phone] (WP) 11/19/[address] [facility] BRINDLEDOB: Insurance:CommercialPol BRINDLEDOB: Hospitals E icy Number: [id number] [address], [id number] E [address] [place] [address] Date:Plan Name:Health [place] [id number]: [id number]: (HP) (HP) 11/19/2017 DEB [facility] DEB [facility] BRINDLEDOB: Insurance:ANTHEMPolicy BRINDLEDOB: Three Repository Number: [id number] [facility] [id number] [place], [place] Date:2015-03-10 - [place], [place] [address]Ccy: [phone] [address] [address] [phone] () 505936OXMXFDT, [place] [address]CB: 11/19/2017 Secondary OLIVIA BRINDLEDOB: [facility] Insurance:COMMERCIALPol [id number] Three Repository icy Number: [facility] [id number] [place], [place] Date: [address] [address]Fbl: [phone]) [phone], [place] [phone] (HP) [phone]: 11/18/2017 DEB C Primary OLIVIA Barajas BRINDLEDOB: Insurance:COMMERCIAL BRINDLEDOB: [facility] E INSURANCEPolicy Number: [id number] System [address] [place] [address], Effective E [address] [place] [address], Repository [place] Date:2017-11-18 - [place] [id number]: [phone]: 5699-09-00Baxv Name:CD:[id number] BOX ()Tel: (000) (HP)Tel: [phone], [place] 000-0000 () [phone] () [phone]: 11/18/2017 DEB Primary OLIVIA BRINDLEDOB: [place] BRINDLEDOB: Insurance:CommercialPol [id number] [facility] E icy Number: [address], Repository [address] [place] [address], [id number] [place] [id number] [place] Date:Plan Name:Health [id number]: () 10/09/2017 DEB C Primary Insurance:1500 OLIVIA Abbey Barajas BRINDLEDOB: [place] KILPATRICK BRINDLEDOB: [facility] E CORPORATIONPolicy [id number] [address], Number: Effective E [address] [place] [address], Repository [place] Date:2017-09-04 - [place] [id number]: [id number]: 9664-55-68Llkv Name:CD:[id number] O (HP)Tel: (000) (HP)Tel: (419) [address]UDSUNPNNA, [place] 000-0000 (WP) [phone] (WP) [address]VP: 10/09/2017 DEB C Primary Insurance:1500 OLIVIA Barajas BRINDLEDOB: [place] Greg FINESSE BRINDLEDOB: [facility] E CORPORATIONPolicy [id number] [address] [place] [address], Number: Effective E [address] [place] [address], Repository [place] Date:2017-10-09 - [place] [id number]: [id number]: [id number] Name:CD:[id number] O (HP)Tel: (000) (HP)Tel: (419) [address]SVUVYFOFN, [place] 000-0000 (WP) [phone] (WP) [address]MY: 10/09/2017 DEB C Primary Insurance:1500 OLIVIA Barajas BRINDLEDOB: [place] Garza KILPATRICK BRINDLEDOB: [facility] E CORPORATIONPolicy [id number] System [address] [place] [address], Number: Effective E [address] [place] [address], Repository [place] Date:2017-10-09 - [place] [id number]: [id number]: 1932-27-11Wvpl Name:CD:[id number] O (HP)Tel: (000) (HP)Tel: (419) [address]QETULXOLH, [place] 000-0000 (WP) [phone] (WP) [address]GR: 10/08/2017 DEB Moreno Primary OLIVIA Barajas BRINDLEDOB: Insurance:COMMERCIAL BRINDLEDOB: [facility] E INSURANCEPolicy Number: [id number] [address] [place] [address], Effective E [address] [place] [address], Repository [place] Date:2017-10-08 - [place] [id number]: [id number]: 3346-84-73Jxwp Name:CD:[id number] BOX (HP)Tel: (000) (HP)Tel: [phone]) [phone], [place] 000-0000 (WP) [phone] (YW) [address]LB: 10/08/2017 DEB Primary OLIVIA BRINDLEDOB: [place] BRINDLEDOB: Insurance:CommercialPol [id number] [facility] E icy Number: [facility] Repository [address] [place] [address], [id number] [place] [id number] [place] Date:Plan Name:[facility] [id number]: () 09/19/2017 DEB Moreno Primary Insurance:[address] [place] [address] Abbey Roman Catholic BRINDLEDOB: Wing KILPATRICK BRINDLEDOB: [facility] [id number] [address], Number: Effective E [address] [place] [address], Repository [place] Date:2017-09-19 - [place] [id number]: [id number]: 7283-21-49Walg [phone] Name:CD:[id number] O (HP)Tel: (000) (HP)Tel: (419) [address]80ZSCALKHQL, [place] 000-0000 (WP) [phone] () [address]FI: 09/18/2017 Primary Insurance:Wing BOYD [facility] Kilpatrick BRINDLEDOB: [facility] BlueKaiPolicy [id number] [facility] Number: [facility] Repository [id number] [place], [place] Date:Plan Name:[facility] [address]Uvw: (419) [address]Nswhxxuh, [phone] (HP) [place] [id number]: 09/18/2017 DEB Moreno Primary OLIVIA BRINDLEDOB: [facility] BRINDLEDOB: Insurance:COMMERCIALPol [id number] Three Repository icy Number: [facility] [id number] [place], [facility], [place] Date:[address] [address]Npb: [phone]: [phone]) [phone], [place] [phone] (HP) [phone] (HP) [address]HG: 09/18/2017 Secondary OLIVIA BRINDLEDOB: [facility] Insurance:StudyEggPol [id number] Three Repository icy Number: [facility] [id number] [place], [place] Date:[address] [address]Oms: ([phone]) 929488MSUYEUBT, [place] [phone] (HP) [address]TP: 09/09/2017 DEB C Primary Insurance:1500 OLIVIA Barajas BRINDLEDOB: Wing KILPATRICK BRINDLEDOB: [facility] E [employer] [id number] System [address] [place] [address], Number: Effective E [address] [place] [address], Repository [place] Date:2017-09-08 - [place] [id number]: [id number]: 6495-23-28Igys Name:CD:[id number] O (HP)Tel: (000) (HP)Tel: (419) [address]34IXLLUTPTU, [place] 000-0000 (WP) [phone] (WP) [address]CV: 09/04/2017 DEB C Primary Insurance:1500 OLIVIA Barajas BRINDLEDOB: Wing KILPATRICK BRINDLEDOB: [facility] E [employer] [id number] System [address] [place] [address], Number: Effective E [address] [place] [address], Repository [place] Date:2017-07-23 - [place] [id number]: [id number]: 3719-42-62Ruug Name:CD:[id number] O (HP)Tel: (000) (HP)Tel: (419) [address]MSCMYBNXX, [place] 000-0000 (WP) [phone] (WP) [address]AS: 08/18/2017 DEB C Primary OLIVIA Abbey Barajas BRINDLEDOB: Insurance:COMMERCIAL BRINDLEDOB: [facility] E INSURANCEPolicy Number: [id number] System [address] [place] [address], Effective E [address] [place] [address], [facility] [place] Date:2017-08-18 - [place] [id number]: [id number]: 0383-77-97Sxsm [phone] Name:CD:[id number] BOX (HP)Tel: (000) (HP)Tel: (575) 060903Xeqwrelb, [place] 000-0000 (WP) [phone] (WP) [address]NC: 08/18/2017 DEB C Primary Insurance:1500 DEB C [employer] BRINDLEDOB: ANTHEMPolicy Number: BRINDLEDOB: [facility] E Effective [id number] [address] [place] [address], Date:2017-07-07 - E [address] [place] [address], [facility] [place] [id number] [place] [id number]: [id number]: Name:[id number] [id number], [place] ()Tel: (842) (HP)Tel: [phone]: (WP) [phone] (WP) [phone] 08/18/[address] [facility] BRINDLEDOB: Insurance:AnthemPolicy BRINDLEDOB: [facility] E Number: [id number] Repository [address] [place] [address], [id number] E [address] [place] [address] Date:Plan Name:[facility] [place] [id number]: [id number]: () (HP) 07/17/2017 DEB C Primary Insurance:1500 OLIVIA Barajas BRINDLEDOB: Wing KILPATRICK BRINDLEDOB: [facility] E CORPORATIONPolicy [id number] [address] [place] [address], Number: Effective E [address] [place] [address], Repository [place] Date:2017-07-17 - [place] [id number]: [id number]: [id number] Name:[id number] O (HP)Tel: (000) (HP)Tel: [phone]) [address]QOM[address], [place] [phone] (WP) [phone] (WP) [phone]: 03/27/2017 DEB C Primary Insurance:1500 DEB Barajas BRINDLEDOB: ANTHEMPolicy Number: BRINDLEDOB: [facility] E Effective [id number] System [address] [place] [address], Date:2017-03-07 - [address] [place] [address], Repository [place] [id number] [place] [id number]: [id number]: Name:CD:[id number] [address]AS[address] (HP)Tel: [phone]) (HP)Tel: [phone]: (WP) [phone] (WP) [phone] 03/07/2017 DEB C Primary Insurance:1500 DEB Barajas BRINDLEDOB: ANTHEMPolicy Number: BRINDLEDOB: [facility] E Effective [id number] System [address] [place] [address], Date:2017-03-04 - [address] [place] [address], Repository [place] [id number] [place] [id number]: [id number]: Name:CD:[id number] [address] B[address] VASQUEZ (HP)Tel: [phone]) (HP)Tel: [phone]: (WP) [phone] (WP) [phone] 03/04/2017 DEB C Primary DEB C [employer] BRINDLEDOB: Insurance:ANTHEMPolicy BRINDLEDOB: [facility] E Number: Effective [id number] System [address] [place] [address], Date:2017-03-[address] [place] [address], Repository [place] [id number] [place] [id number]: [id number]: Name:Kenton CAMARENA [id number], [place] ()Tel: [phone]) (HP)Tel: [phone]: [phone] (WP) [phone] (WP)
--- OUTSIDE RECORDS SUMMARY | 2018-04-03 15:36 | XMS RPT_ITS | Summary of Care ---
:1965 Author Organization [facility] Address [address] [place] [address] Care Team Providers Name Role Phone Lynn Ratliff DO Primary Care Provider Encounter Details Date Type Department Care Team Description 09/18/2017 Office Visit [facility] Orthopedic Kana Crabtree Seropositive and Sports Medicine Jen, MD rheumatoid arthritis [address] (HCC) (Primary Dx) Medical Office [place], [place] Building [address] [place], [place] [phone] [id number] [phone] Allergies No Known Allergiesas of this encounter [...] [facility]. Name: Nalini Reynoso Date:09/18/17 [id number] :1965 Allergies: no known allergies. Medications: Current [...] this chart may have been created with [employer] voice recognition software. Occasional wrong-word or sound-like [...]
--- OUTSIDE RECORDS SUMMARY | 2018-04-03 15:36 | XMS RPT_ITS | Summary of Care ---
:1965 Author Organization [facility] Address [address] [place] [address] Care Team Providers Name Role Phone Lynn Ratliff DO Primary Care Provider Encounter Details Date Type Department Care Team Description 09/18/2017 Hospital Encounter [facility] [place] [address] MD [place], [place] [address] [id number] [place] [address] Allergies No Known Allergiesas of [...] - 20 MM/hr. Specimen [place]forming [place] [address] BUN and Creatinine (09/18/2017 10:39 AM) Component [...] GFR Calc ml/min/1.73sq.m Specimen Performing Laboratory Blood [address] [address] Hepatic Function Panel (09/18/2017 10:39 AM) Component [...] - 5.2 g/dL Specimen Performing [place] [address] CRP, C-Reactive Protein (09/18/2017 10:39 AM) Component Value Ref Range CRP - Inflammation 13.5 (H) 0.0 - 10.0 mg/L Specimen [place]forming [place] [address] CBC and Differential (09/18/2017 10:39 AM) Component [...] Basophils 0.8 % Specimen [place]forming [place] [address] in this encounter
== END ==
PROVIDERS: Family Provider Internal Medicine; PCP Internal Medicine; Referring Provider Internal Medicine Endocrinology, Diabetes & Metabolism; Visit Provider Internal Medicine Endocrinology, Diabetes & Metabolism
DX: C73 Malignant neoplasm of thyroid gland (principal)
CPT/HCPCS: 36415; 84432; 84439; 84443; 86800

== ENCOUNTER → 2020-04-28 14:18 | Outpatient (CLI) | payer OTHER, SELFPAY ==
[2018-03-04 09:49] VITALS: BMI 35.6
--- NOTE | 2020-04-28 14:26 | US_ITS ---
STUDY: THYROID ULTRASOUND REASON FOR EXAM: Female, 55 years old. H/o thyroid CA TECHNIQUE: Ultrasound evaluation of the thyroid was performed with real-time and static lyles-scale imaging. COMPARISON: None. FINDINGS: RIGHT LOBE: Surgically removed. LEFT LOBE: Surgically removed. ISTHMUS: Surgically removed. There are 2 benign appearing lymph nodes in the left cervical region. The larger measures 1.7 cm x 0.8 cm x 0.6 cm. US/Thyroid IMPRESSION: Benign appearing left cervical lymph nodes. Status post total thyroidectomy. Electronically Signed: Florentino Prather MD at 15:28 EST , Service support ,
[2020-04-28 15:27] LABS: Hematocrit 39.1 % (37-47); Hemoglobin 12.9 g/dL (12.0-15.0); Mean Corpuscular Hgb 28.6 pg (27.0-32.0); Mean Corpuscular Volume 86.7 fL (81-99); Mean Platelet Vol. 9.7 fl (6.2-12.0); Platelet Count 464 K/mm3 (150-450); RBC Distribution Width CV 13.9 % (11.6-14.6); Red Blood Count 4.51 M/mm3 (4.2-5.4); White Blood Count 9.5 K/mm3 (4.4-11.0)
[2020-04-28 15:53] LABS: Vitamin D,25 Hydroxy 66.8 ng/mL
[2020-04-28 16:01] LABS: ALB/GLOB Ratio 1.1 RATIO (0.9-2.4); AST(SGOT) 26 U/L (15-37); Alanine Aminotransfer ALT/SGPT 41 U/L (13-56); Albumin, Serum 4.1 g/dL (3.2-5.0); Alkaline Phosphatase 68 U/L (45-117); Anion Gap 6 (5-15); BUN 16 mg/dL (7-18); BUN/Creat Ratio 18.6 RATIO (10-20); Calcium,Total 9.3 mg/dL (8.5-10.1); Chloride 107 mmol/L (98-107); Creatinine, Serum 0.86 mg/dL (0.55-1.02); EST Glomerular Filtration Rate 73 mL/min (>60); Est Glom Filt Rate - Afr Amer 88 mL/min (>60); Globulin 3.7 g/dL (2.2-4.2); Glucose 105 mg/dL (74-106); Potassium 3.3 mmol/L (3.5-5.1); Protein, Total 7.8 g/dL (6.4-8.2); Sodium Level 141 mmol/L (136-145); T4 Free Direct 1.13 ng/dL (0.76-1.46); Thyroid Stim Hormone (TSH) 0.47 uIU/mL (0.358-3.74)
[2020-05-01 18:00] LABS: Thyroglobulin Antibody < 1.0 IU/mL (0.0-0.9); Thyroid Peroxidase AB < 9 IU/mL (0-34)
== END ==
LOC: US 14:23
PROVIDERS: PCP Internal Medicine; Referring Provider Internal Medicine Endocrinology, Diabetes & Metabolism; Visit Provider Internal Medicine Endocrinology, Diabetes & Metabolism
DX: C73 Malignant neoplasm of thyroid gland (principal); E89.0 Postprocedural hypothyroidism; R63.5 Abnormal weight gain; I10 Essential (primary) hypertension
CPT/HCPCS: 36415; 76536; 80053; 82306; 84439; 84443; 84481; 85027; 86376; 86800

== ENCOUNTER → 2020-09-01 11:23 | Outpatient (CLI) | payer BC, SELFPAY ==
[2018-03-04 09:49] VITALS: BMI 35.6
[2020-09-01 11:57] LABS: Hematocrit 38.4 % (37-47); Mean Corp Hgb Conc 33.9 g/dL (32-36); Mean Corpuscular Hgb 28.9 pg (27.0-32.0); Mean Corpuscular Volume 85.3 fL (81-99); Mean Platelet Vol. 9.5 fl (6.2-12.0); Platelet Count 496 K/mm3 (150-450); RBC Distribution Width CV 13.6 % (11.6-14.6); RBC Distribution Width SD 42.2 fl (35.1-43.9); White Blood Count 9.5 K/mm3 (4.4-11.0)
[2020-09-01 12:07] LABS: Vitamin D,25 Hydroxy 72.6 ng/mL
[2020-09-01 12:14] LABS: ALB/GLOB Ratio 1.1 RATIO (0.9-2.4); AST(SGOT) 20 U/L (15-37); Alanine Aminotransfer ALT/SGPT 40 U/L (13-56); Albumin, Serum 3.9 g/dL (3.2-5.0); Alkaline Phosphatase 77 U/L (45-117); Anion Gap 8 (5-15); BUN 16 mg/dL (7-18); BUN/Creat Ratio 22.4 RATIO (10-20); Calcium,Total 8.6 mg/dL (8.5-10.1); Chloride 105 mmol/L (98-107); Creatinine, Serum 0.71 mg/dL (0.55-1.02); EST Glomerular Filtration Rate 90 mL/min (>60); Est Glom Filt Rate - Afr Amer 109 mL/min (>60); Free T3 2.6 pg/mL (2.18-3.98); Globulin 3.4 g/dL (2.2-4.2); Glucose 114 mg/dL (74-106); Potassium 3.5 mmol/L (3.5-5.1); Protein, Total 7.3 g/dL (6.4-8.2); Sodium Level 138 mmol/L (136-145); T4 Free Direct 1.06 ng/dL (0.76-1.46); Thyroid Stim Hormone (TSH) 0.25 uIU/mL (0.358-3.74)
[2020-09-04 16:08] LABS: Thyroid Peroxidase AB < 9 IU/mL (0-34)
[2020-09-06 16:17] LABS: Anti-Thyroglobulin AB < 1.0 IU/mL (0.0-0.9); Thyroglobulin, Serum Qt. 0.3 ng/mL (1.5-38.5); Thyroid Peroxidase AB < 9 IU/mL (0-34)
[2020-09-06 16:35] LABS: Thyroglobulin Antibody < 1.0 IU/mL (0.0-0.9)
== END ==
PROVIDERS: PCP Internal Medicine; Referring Provider Internal Medicine Endocrinology, Diabetes & Metabolism; Visit Provider Internal Medicine Endocrinology, Diabetes & Metabolism
DX: C73 Malignant neoplasm of thyroid gland (principal); E89.0 Postprocedural hypothyroidism; R63.5 Abnormal weight gain; I10 Essential (primary) hypertension
CPT/HCPCS: 36415; 80053; 82306; 84432; 84439; 84443; 84481; 85027; 86376; 86800

== ENCOUNTER → 2021-01-27 09:07 | Outpatient (CLI) | payer BC, SELFPAY ==
--- NOTE | 2021-01-27 09:51 | RAD_ITS ---
STUDY: X-RAY - LEFT FOOT CLINICAL: Female, 56 years old patient with left foot pain. TECHNIQUE: AP and lateral view(s) of the foot. COMPARISON: None. FINDINGS: Normal talus, calcaneus, and tarsal bones. Intertarsal and tarsometatarsal articulations are within normal limits. Normal metatarsi. Normal metatarsophalangeal joint of the great toe. Normal tibial and fibular sesamoid bones. Normal interphalangeal joint of the great toe. Normal phalanges of the great toe. Normal second through fifth metatarsophalangeal joints. Normal interphalangeal joints and phalanges of the lesser toes. The soft tissue structures are unremarkable. There is no demonstrated fracture. RAD/Foot 2 Views IMPRESSION: No radiographic evidence for acute fracture or dislocation. If there is still clinical concern for acute fracture, follow-up radiographs in 7-10 days maybe helpful in evaluating a healing radiographically occult fracture. Electronically Signed: Dayana Silverio MD at 4:13 EST , Service support ,
--- NOTE | 2021-01-27 09:51 | RAD_ITS ---
STUDY: X-RAY - LEFT WRIST REASON FOR EXAM: Female, 56 years old. PRIMARY OSTEOARTHRITIS TECHNIQUE: 2 view(s) of the wrist were obtained. COMPARISON: None. FINDINGS: No acute fracture or dislocation. No destructive bone changes. Joint spaces are well-maintained. Normal alignment. Soft tissues are unremarkable. No radiopaque foreign body or soft tissue gas. RAD/Wrist 2 Views IMPRESSION: Normal x-ray examination of the wrist. Electronically Signed: Anny Zarate MD at 23:57 EST Tel , Service support ,
--- NOTE | 2021-01-27 09:51 | RAD_ITS ---
STUDY: X-RAY - BILATERAL HANDS REASON FOR EXAM: Female, 56 years old. HAND PAIN-RHEUMATOLOGY EVAL ONLY TECHNIQUE - RIGHT HAND: 2 view(s) of the right hand were obtained. TECHNIQUE - LEFT HAND: 2 view(s) of the left hand were obtained. This reflects 2 images with bilateral hands. One image shows the, phalanges of the fingers flexed which limits the study. COMPARISON: None. FINDINGS - RIGHT HAND: There is mild degenerative change at the scaphoid trapezium joint space.. Normal carpometacarpal articulation of the thumb. Normal second through fifth carpometacarpal joints. There is mild articular osteopenia. There is minimal degenerative change in the metacarpal phalangeal joints. There is minimal degenerative change of the metacarpal phalangeal joint of the first digit. The distal interphalangeal joints allowing for technique show no significant narrowing or osteophyte formation. The soft tissue structures are unremarkable. FINDINGS - LEFT HAND: There is trace degenerative change at the scaphoid trapezium joint space of the left hand Normal carpometacarpal articulation of the thumb. Normal second through fifth carpometacarpal joints. There is mild periarticular osteopenia. There is minimal degenerative change in the second and third metacarpophalangeal joints. Within the head middle phalanx there may be evidence of some marginal erosion. The soft tissue structures are unremarkable. RAD/Hand 2 Views IMPRESSION: Right Hand: Findings are suggestive of possible early mixed arthritides as detailed above. Lumen correlation with laboratory values. Left Hand: Findings is suggestive of early mixed arthritides as detailed above. Findings of metacarpal phalangeal joint arthritides can be associated with rheumatoid or psoriatic arthritis. Carpocarpal degenerative changes of osteoarthritis and/or potentially rheumatoid arthritis. Electronically Signed: Farhana Melara MD at 1:08 EST Tel , Service support ,
--- NOTE | 2021-01-27 09:51 | RAD_ITS ---
STUDY: X-RAY - LUMBAR SPINE REASON FOR EXAM: Female, 56 years old patient with history of rheumatoid arthritis. TECHNIQUE: 5 view(s) of the lumbar spine were obtained. COMPARISON: Radiographs of lumbar spine dated 03/20/2012. FINDINGS: Normal lumbar lordosis. There is no substantial scoliosis. There is a normal alignment of the vertebrae. There is multilevel endplate spondylosis of the lumbar vertebrae. Normal disc space heights. There is multilevel degenerative arthropathy of the lumbar spine. There is no demonstrated fracture. There is no obvious organomegaly, mass, dilated bowel or pathologic calcifications. 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 Electronically Signed: Dayana Silverio MD at 4:49 EST , Service support ,
--- NOTE | 2021-01-27 09:51 | RAD_ITS ---
STUDY: X-RAY - SACROILIAC JOINTS REASON FOR EXAM: Female, 56 years old patient with primary osteoarthritis. TECHNIQUE: 3 view(s) of the sacroiliac joints were obtained. COMPARISON: Prior comparison studies are not available for review at this time. FINDINGS: There appears to be a mild degenerative arthropathy of the right sacroiliac joint. Left sacroiliac joint is within normal limits. The sacrum is obscured by bowel gas and/or stool. There is no demonstrated fracture. Normal visualized iliac bones. Normal visualized soft tissue structures. RAD/S-I Jts 3 or More Views IMPRESSION: Mild degenerative arthropathy. Electronically Signed: Dayana Silverio MD at 4:52 EST , Service support ,
--- NOTE | 2021-01-27 09:52 | RAD_ITS ---
STUDY: X-RAY - RIGHT WRIST REASON FOR EXAM: Female, 56 years old. PRIMARY OSTEOARTHRITIS TECHNIQUE: 2 view(s) of the wrist were obtained. COMPARISON: None. FINDINGS: Normal visualized distal radius and ulna. There is minor narrowing of the scaphoid trapezium joint space. Normal distal radioulnar articulation. Normal carpal bones. Normal carpal articulations. Normal carpometacarpal articulation of the thumb. Normal second through fifth carpometacarpal articulations. Normal visualized metacarpal bones. The soft tissue structures are unremarkable. RAD/Wrist 2 Views IMPRESSION: Minimal degenerative change, scaphoid trapezium joint space. Electronically Signed: Farhana Melara MD at 1:02 EST Tel , Service support ,
[2021-01-27 10:11] LABS: Absolute Lymphocyte Count 2.14 X10^3/uL (0.83-4.51); Absolute Neutrophil Count 5.4 X10^3/uL (2.0-7.7); Basophil# 0.05 X10^3/uL; Basophil% 0.6 % (0-1); Eosinophil# 0.29 X10^3/uL; Eosinophils% 3.4 % (0-5); Hematocrit 39.2 % (37-47); Lymphocyte # 2.14 X10^3/ul (0.83-4.51); Lymphocyte % 25.3 % (19-41); Mean Corp Hgb Conc 33.2 g/dL (32-36); Mean Corpuscular Hgb 28.8 pg (27.0-32.0); Mean Corpuscular Volume 86.9 fL (81-99); Mean Platelet Vol. 9.7 fl (6.2-12.0); Monocyte% 7.1 % (0-10); NRBC Flagged by Analyzer 0 % (0-5); Neutrophil # 5.35 X10^3/uL (2.7-7.7); Neutrophil % 63.1 % (47-70); Platelet Count 466 K/mm3 (150-450); RBC Distribution Width CV 14.8 % (11.6-14.6); RBC Distribution Width SD 46.6 fl (35.1-43.9); Red Blood Count 4.51 M/mm3 (4.2-5.4); White Blood Count 8.5 K/mm3 (4.4-11.0)
[2021-01-27 10:12] LABS: Erythrocyte Sedimentation Rate 4 mm/hr (0-30)
[2021-01-27 10:40] LABS: ALB/GLOB Ratio 1.1 RATIO (0.9-2.4); AST(SGOT) 43 U/L (15-37); Alanine Aminotransfer ALT/SGPT 79 U/L (13-56); Albumin, Serum 3.9 g/dL (3.2-5.0); Alkaline Phosphatase 73 U/L (45-117); Anion Gap 7 (5-15); BUN 15 mg/dL (7-18); BUN/Creat Ratio 22.1 RATIO (10-20); CPK Total, Creatine Kinase 177 U/L (26-192); Calcium,Total 9.2 mg/dL (8.5-10.1); Chloride 106 mmol/L (98-107); Creatinine, Serum 0.68 mg/dL (0.55-1.02); EST Glomerular Filtration Rate 96 mL/min (>60); Est Glom Filt Rate - Afr Amer 116 mL/min (>60); Globulin 3.7 g/dL (2.2-4.2); Glucose 101 mg/dL (74-106); Potassium 3.5 mmol/L (3.5-5.1); Protein, Total 7.6 g/dL (6.4-8.2); Sodium Level 142 mmol/L (136-145); Thyroid Stim Hormone (TSH) 0.06 uIU/mL (0.358-3.74); Uric Acid 6.9 mg/dL (2.6-6.0)
[2021-01-29 09:04] LABS: Vitamin D,25 Hydroxy 87.5 ng/mL
[2021-01-29 13:07] LABS: ANTINUCLEAR ANTIBODIES DIRECT Positive (Negative); Anti-Centromere B Ab <0.2 AI (0.0-0.9); Anti-Chromatin <0.2 AI (0.0-0.9); Anti-Jo <0.2 AI (0.0-0.9); Anti-Scleroderma-70 AB <0.2 AI (0.0-0.9); RNP Ab 1.6 AI (0.0-0.9); SJOGREN'S Anti-SS-A test < 0.2 AI (0.0-0.9); SJOGREN'S Anti-SS-B test < 0.2 AI (0.0-0.9); Smith Ab <0.2 AI (0.0-0.9); Vitamin D 1,25-Dihydroxy 70.6 pg/mL (19.9-79.3)
[2021-01-30 07:39] LABS: Anti-dsDNA Ab <1 IU/mL (0-9)
[2021-02-05 13:07] LABS: Alpha-1-Globulins 0.2 g/dL (0.0-0.4); Alpha-2-Globulins 0.8 g/dL (0.4-1.0); Angiotensin Convert Enzyme 50 U/L (14-82); Cytoplasmic Ab (C-ANCA) <1:20 titer (Neg:<1:20); Gamma Globulin 0.8 g/dL (0.4-1.8); Immunoglobulin A 196 mg/dL (87-352); Immunoglobulin G 796 mg/dL (586-1602); Immunoglobulin M 113 mg/dL (26-217); PROEL- TOTAL PROTEIN 7.2 g/dL (6.0-8.5)
[2021-02-05 18:28] LABS: CCP IgG Antibodies 7 units (0-19); HLA B27 Negative (.); Perinuclear Ab (P-ANCA) 1:20 titer (Neg:<1:20)
== END ==
PROVIDERS: PCP Internal Medicine; Referring Provider Internal Medicine Rheumatology; Visit Provider Internal Medicine Rheumatology
DX: M54.9 Dorsalgia, unspecified (principal); M19.041 Primary osteoarthritis, right hand; M19.042 Primary osteoarthritis, left hand; M19.071 Primary osteoarthritis, right ankle and foot; M19.072 Primary osteoarthritis, left ankle and foot; M25.572 Pain in left ankle and joints of left foot; M89.9 Disorder of bone, unspecified; M94.9 Disorder of cartilage, unspecified; E03.9 Hypothyroidism, unspecified; I10 Essential (primary) hypertension; R53.83 Other fatigue; R79.82 Elevated C-reactive protein (CRP); Z79.1 Long term (current) use of non-steroidal anti-inflammatories (NSAID); Z87.39 Personal history of other diseases of the musculoskeletal system and connective tissue; R76.8 Other specified abnormal immunological findings in serum; M25.531 Pain in right wrist; M25.532 Pain in left wrist; M79.641 Pain in right hand; M79.642 Pain in left hand
CPT/HCPCS: 36415; 72110; 72202; 73100; 73120; 73620; 80053; 81374; 82164; 82306; 82550; 82652; 82784; 83516; 84165; 84443; 84550; 85025; 85652; 86038; 86140; 86200; 86225; 86235; 86256; 86334; 86431

== ENCOUNTER → 2021-03-07 15:04 | Outpatient (CLI) | payer BC, SELFPAY ==
[2021-03-07 16:07] LABS: ALB/GLOB Ratio 1.1 RATIO (0.9-2.4); AST(SGOT) 36 U/L (15-37); Alanine Aminotransfer ALT/SGPT 64 U/L (13-56); Alkaline Phosphatase 72 U/L (45-117); Anion Gap 10 (5-15); BUN 19 mg/dL (7-18); BUN/Creat Ratio 21.5 RATIO (10-20); Calcium,Total 9.3 mg/dL (8.5-10.1); Chloride 103 mmol/L (98-107); Creatinine, Serum 0.88 mg/dL (0.55-1.02); EST Glomerular Filtration Rate 71 mL/min (>60); Est Glom Filt Rate - Afr Amer 85 mL/min (>60); Free T3 2.3 pg/mL (2.18-3.98); Globulin 3.7 g/dL (2.2-4.2); Glucose 102 mg/dL (74-106); Potassium 3.1 mmol/L (3.5-5.1); Protein, Total 7.7 g/dL (6.4-8.2); Sodium Level 139 mmol/L (136-145); T4 Free Direct 0.93 ng/dL (0.76-1.46); Thyroid Stim Hormone (TSH) 3.33 uIU/mL (0.358-3.74)
[2021-03-09 12:07] LABS: Thyroid Peroxidase AB 8 IU/mL (0-34)
[2021-03-09 12:31] LABS: Thyroglobulin Antibody < 1.0 IU/mL (0.0-0.9)
[2021-03-09 22:37] LABS: Anti-Thyroglobulin AB < 1.0 IU/mL (0.0-0.9); Thyroglobulin, Serum Qt. 0.3 ng/mL (1.5-38.5)
== END ==
PROVIDERS: PCP Internal Medicine; Visit Provider Internal Medicine Endocrinology, Diabetes & Metabolism
DX: C73 Malignant neoplasm of thyroid gland (principal); E89.0 Postprocedural hypothyroidism; R63.5 Abnormal weight gain; I10 Essential (primary) hypertension
CPT/HCPCS: 36415; 80053; 84432; 84439; 84443; 84481; 86376; 86800

== ENCOUNTER → 2021-09-15 | Outpatient (CLI) | payer BC, SELFPAY ==
[2021-09-15 11:18] LABS: Hemoglobin A1c 5.7 % (3.8-5.6)
[2021-09-15 11:27] LABS: Vitamin D,25 Hydroxy 83.7 ng/mL
[2021-09-15 11:42] LABS: ALB/GLOB Ratio 1.1 RATIO (0.9-2.4); AST(SGOT) 29 U/L (15-37); Alanine Aminotransfer ALT/SGPT 58 U/L (13-56); Albumin, Serum 3.8 g/dL (3.2-5.0); Alkaline Phosphatase 77 U/L (45-117); Anion Gap 5 (5-15); BUN 15 mg/dL (7-18); BUN/Creat Ratio 26.2 RATIO (10-20); Calcium,Total 9.1 mg/dL (8.5-10.1); Chloride 105 mmol/L (98-107); Cholesterol 248 mg/dL (200); Creatinine, Serum 0.57 mg/dL (0.55-1.02); EST Glomerular Filtration Rate 116 mL/min (>60); Est Glom Filt Rate - Afr Amer 141 mL/min (>60); Globulin 3.6 g/dL (2.2-4.2); Glucose 101 mg/dL (74-106); High Density Lipoprotein 62 mg/dL; Potassium 3.6 mmol/L (3.5-5.1); Protein, Total 7.4 g/dL (6.4-8.2); Sodium Level 141 mmol/L (136-145); T4 Free Direct 1.09 ng/dL (0.76-1.46); Thyroid Stim Hormone (TSH) < 0.01 uIU/mL (0.358-3.74); Triglycerides 206 mg/dL; Very Low Density Lipoprotein 41 mg/dL (5-40)
== END | disposition home or self-care (01) ==
PROVIDERS: PCP Internal Medicine; Referring Provider Internal Medicine Endocrinology, Diabetes & Metabolism; Visit Provider Internal Medicine Endocrinology, Diabetes & Metabolism
DX: C73 Malignant neoplasm of thyroid gland (principal); E89.0 Postprocedural hypothyroidism; I10 Essential (primary) hypertension; R63.5 Abnormal weight gain
CPT/HCPCS: 36415; 80053; 80061; 82306; 83036; 84439; 84443

== ENCOUNTER → 2022-03-08 | Outpatient (CLI) | payer BC, SELFPAY ==
[2022-03-08 13:04] LABS: Hemoglobin A1c 5.5 % (3.8-5.6)
[2022-03-08 13:29] LABS: ALB/GLOB Ratio 1.1 RATIO (0.9-2.4); AST(SGOT) 26 U/L (15-37); Alanine Aminotransfer ALT/SGPT 48 U/L (13-56); Alkaline Phosphatase 74 U/L (45-117); Anion Gap 7 (5-15); BUN 15 mg/dL (7-18); BUN/Creat Ratio 23.3 RATIO (10-20); Calcium,Total 9.1 mg/dL (8.5-10.1); Chloride 107 mmol/L (98-107); Cholesterol 260 mg/dL (200); Creatinine, Serum 0.64 mg/dL (0.55-1.02); EST Glomerular Filtration Rate 101 mL/min (>60); Est Glom Filt Rate - Afr Amer 122 mL/min (>60); Free T3 3.2 pg/mL (2.18-3.98); Globulin 3.8 g/dL (2.2-4.2); Glucose 92 mg/dL (74-106); High Density Lipoprotein 66 mg/dL; Potassium 3.7 mmol/L (3.5-5.1); Protein, Total 7.8 g/dL (6.4-8.2); Sodium Level 140 mmol/L (136-145); T4 Free Direct 1.17 ng/dL (0.76-1.46); Thyroid Stim Hormone (TSH) 0.09 uIU/mL (0.358-3.74); Triglycerides 145 mg/dL; Very Low Density Lipoprotein 29 mg/dL (5-40)
[2022-03-11 22:06] LABS: Thyroid Peroxidase AB 11 IU/mL (0-34)
[2022-03-12 16:36] LABS: Thyroglobulin Antibody < 1.0 IU/mL (0.0-0.9)
== END | disposition home or self-care (01) ==
LOC: LAB 11:10
PROVIDERS: PCP Internal Medicine; Visit Provider Internal Medicine Endocrinology, Diabetes & Metabolism
DX: C73 Malignant neoplasm of thyroid gland (principal); E89.0 Postprocedural hypothyroidism; I10 Essential (primary) hypertension; R63.5 Abnormal weight gain
CPT/HCPCS: 36415; 80053; 80061; 83036; 84439; 84443; 84481; 86376; 86800

== ENCOUNTER 2022-07-06 11:54 | Outpatient (CLI) | payer BC, SELFPAY ==
[2022-07-06 12:39] LABS: Hemoglobin A1c 5.2 % (3.8-5.6)
[2022-07-06 12:42] LABS: Microalbumin,Random Urine 65.9 mg/L (NO RANGE EST.)
[2022-07-06 12:50] LABS: ALB/GLOB Ratio 1.2 RATIO (0.9-2.4); AST(SGOT) 24 U/L (15-37); Alanine Aminotransfer ALT/SGPT 42 U/L (13-56); Albumin, Serum 4.2 g/dL (3.2-5.0); Alkaline Phosphatase 71 U/L (45-117); Anion Gap 8 (5-15); BUN 13 mg/dL (7-18); BUN/Creat Ratio 17.3 RATIO (10-20); Chloride 107 mmol/L (98-107); Cholesterol 205 mg/dL (200); Creatinine, Serum 0.75 mg/dL (0.55-1.02); EST Glomerular Filtration Rate 85 mL/min (>60); Est Glom Filt Rate - Afr Amer 103 mL/min (>60); Globulin 3.4 g/dL (2.2-4.2); Glucose 113 mg/dL (74-106); High Density Lipoprotein 64 mg/dL; Potassium 3.5 mmol/L (3.5-5.1); Protein, Total 7.6 g/dL (6.4-8.2); Sodium Level 143 mmol/L (136-145); Thyroid Stim Hormone (TSH) 0.42 uIU/mL (0.358-3.74); Triglycerides 160 mg/dL; Very Low Density Lipoprotein 32 mg/dL (5-40)
== END 2022-07-06 23:59 | disposition home or self-care (01) ==
LOC: LAB 11:57
PROVIDERS: PCP Internal Medicine; Referring Provider Internal Medicine Endocrinology, Diabetes & Metabolism; Visit Provider Internal Medicine Endocrinology, Diabetes & Metabolism
DX: Z00.00 Encounter for general adult medical examination without abnormal findings (principal)
CPT/HCPCS: 36415; 80053; 80061; 82043; 83036; 84443

== ENCOUNTER → 2022-08-15 | Outpatient (CLI) | payer BC, SELFPAY ==
[2022-08-15 12:23] LABS: Free T3 2.1 pg/mL (2.18-3.98); T4 Free Direct 0.89 ng/dL (0.76-1.46); Thyroid Stim Hormone (TSH) 5.16 uIU/mL (0.358-3.74)
== END | disposition home or self-care (01) ==
LOC: LAB 10:51
PROVIDERS: PCP Internal Medicine; Referring Provider Internal Medicine Endocrinology, Diabetes & Metabolism; Visit Provider Internal Medicine Endocrinology, Diabetes & Metabolism
DX: C73 Malignant neoplasm of thyroid gland (principal); E89.0 Postprocedural hypothyroidism; I10 Essential (primary) hypertension; R73.03 Prediabetes; R63.5 Abnormal weight gain
CPT/HCPCS: 36415; 84439; 84443; 84481

== ENCOUNTER → 2022-10-11 | Outpatient (CLI) | payer BC, SELFPAY ==
[2022-10-11 11:48] LABS: Microalbumin:Creatinine Ratio 14.7 mg/g CRE (<30 mg/g CRE)
[2022-10-11 12:06] LABS: Vitamin D,25 Hydroxy 73.6 ng/mL
[2022-10-11 12:10] LABS: Hemoglobin A1c 5.4 % (3.8-5.6)
[2022-10-11 12:17] LABS: ALB/GLOB Ratio 1.1 RATIO (0.9-2.4); AST(SGOT) 30 U/L (15-37); Alanine Aminotransfer ALT/SGPT 51 U/L (13-56); Albumin, Serum 3.8 g/dL (3.2-5.0); Alkaline Phosphatase 63 U/L (45-117); Anion Gap 6 (5-15); BUN 14 mg/dL (7-18); BUN/Creat Ratio 19.7 RATIO (10-20); Chloride 107 mmol/L (98-107); Creatinine, Serum 0.71 mg/dL (0.55-1.02); EST Glomerular Filtration Rate 90 mL/min (>60); Est Glom Filt Rate - Afr Amer 109 mL/min (>60); Globulin 3.6 g/dL (2.2-4.2); Glucose 98 mg/dL (74-106); Potassium 3.6 mmol/L (3.5-5.1); Protein, Total 7.4 g/dL (6.4-8.2); Sodium Level 141 mmol/L (136-145); Thyroid Stim Hormone (TSH) 0.05 uIU/mL (0.358-3.74)
== END | disposition home or self-care (01) ==
LOC: LAB 11:01
PROVIDERS: PCP Internal Medicine; Referring Provider Internal Medicine Endocrinology, Diabetes & Metabolism; Visit Provider Internal Medicine Endocrinology, Diabetes & Metabolism
DX: C73 Malignant neoplasm of thyroid gland (principal); E89.0 Postprocedural hypothyroidism; I10 Essential (primary) hypertension; R73.03 Prediabetes; R63.5 Abnormal weight gain
CPT/HCPCS: 36415; 80053; 82043; 82306; 82570; 83036; 84439; 84443

== ENCOUNTER → 2023-02-08 | Outpatient (CLI) | payer BC, SELFPAY ==
[2023-02-08 10:51] LABS: ALB/GLOB Ratio 1.1 RATIO (0.9-2.4); AST(SGOT) 19 U/L (15-37); Alanine Aminotransfer ALT/SGPT 30 U/L (13-56); Albumin, Serum 3.6 g/dL (3.2-5.0); Alkaline Phosphatase 55 U/L (45-117); Anion Gap 7 (5-15); BUN 12 mg/dL (7-18); BUN/Creat Ratio 16.4 RATIO (10-20); Calcium,Total 8.6 mg/dL (8.5-10.1); Chloride 106 mmol/L (98-107); Creatinine, Serum 0.73 mg/dL (0.55-1.02); EST Glomerular Filtration Rate 87 mL/min (>60); Est Glom Filt Rate - Afr Amer 105 mL/min (>60); Free T3 1.9 pg/mL (2.18-3.98); Globulin 3.3 g/dL (2.2-4.2); Glucose 103 mg/dL (74-106); Potassium 3.6 mmol/L (3.5-5.1); Protein, Total 6.9 g/dL (6.4-8.2); Sodium Level 139 mmol/L (136-145); T4 Free Direct 0.64 ng/dL (0.76-1.46); Thyroid Stim Hormone (TSH) 4.59 uIU/mL (0.358-3.74)
[2023-02-08 13:36] LABS: Hemoglobin A1c 5.5 % (3.8-5.6)
== END | disposition home or self-care (01) ==
LOC: LAB 09:10
PROVIDERS: PCP Internal Medicine; Referring Provider Internal Medicine Endocrinology, Diabetes & Metabolism; Visit Provider Internal Medicine Endocrinology, Diabetes & Metabolism
DX: C73 Malignant neoplasm of thyroid gland (principal); E89.0 Postprocedural hypothyroidism; R73.03 Prediabetes; I10 Essential (primary) hypertension; R63.5 Abnormal weight gain
CPT/HCPCS: 36415; 80053; 83036; 83970; 84439; 84443; 84481

== ENCOUNTER → 2023-09-12 | Outpatient (CLI) | payer BC, SELFPAY ==
[2023-09-12 10:57] LABS: Vitamin D,25 Hydroxy 54.5 ng/mL
[2023-09-12 11:29] LABS: Protein, Urine (Random) 19.1 mg/dL (<11.9); Protein:Creat Ratio 149 mg/g CRE (0-200)
[2023-09-12 11:35] LABS: AST(SGOT) 26 U/L (15-37); Alanine Aminotransfer ALT/SGPT 38 U/L (13-56); Albumin, Serum 3.9 g/dL (3.2-5.0); Alkaline Phosphatase 61 U/L (45-117); Anion Gap 9 (5-15); BUN 13 mg/dL (7-18); Calcium,Total 9.5 mg/dL (8.5-10.1); Chloride 101 mmol/L (98-107); Cholesterol 281 mg/dL (200); Creatinine, Serum 0.76 mg/dL (0.55-1.02); EST Glomerular Filtration Rate 83 mL/min (>60); Est Glom Filt Rate - Afr Amer 100 mL/min (>60); Free T3 2.6 pg/mL (2.18-3.98); Globulin 3.9 g/dL (2.2-4.2); Glucose 108 mg/dL (74-106); High Density Lipoprotein 58 mg/dL; Potassium 4.2 mmol/L (3.5-5.1); Protein, Total 7.8 g/dL (6.4-8.2); Sodium Level 136 mmol/L (136-145); T4 Free Direct 0.78 ng/dL (0.76-1.46); Thyroid Stim Hormone (TSH) 1.71 uIU/mL (0.358-3.74); Triglycerides 335 mg/dL; Very Low Density Lipoprotein 67 mg/dL (5-40)
== END | disposition home or self-care (01) ==
LOC: LAB 09:47
PROVIDERS: PCP Internal Medicine; Referring Provider Internal Medicine Endocrinology, Diabetes & Metabolism; Visit Provider Internal Medicine Endocrinology, Diabetes & Metabolism
DX: I10 Essential (primary) hypertension (principal); C73 Malignant neoplasm of thyroid gland; E89.0 Postprocedural hypothyroidism; R73.03 Prediabetes
CPT/HCPCS: 36415; 80053; 80061; 82306; 82570; 84156; 84439; 84443; 84481

== ENCOUNTER → 2023-12-20 | Outpatient (CLI) | payer BC, SELFPAY ==
[2023-12-20 10:50] LABS: ALB/GLOB Ratio 1.1 RATIO (0.9-2.4); AST(SGOT) 36 U/L (15-37); Alanine Aminotransfer ALT/SGPT 58 U/L (13-56); Albumin, Serum 3.9 g/dL (3.2-5.0); Alkaline Phosphatase 68 U/L (45-117); Anion Gap 5 (5-15); BUN 12 mg/dL (7-18); Calcium,Total 9.2 mg/dL (8.5-10.1); Chloride 111 mmol/L (98-107); Cholesterol 242 mg/dL (200); Creatinine, Serum 0.75 mg/dL (0.55-1.02); EST Glomerular Filtration Rate 84 mL/min (>60); Est Glom Filt Rate - Afr Amer 102 mL/min (>60); Free T3 2.1 pg/mL (2.18-3.98); Globulin 3.6 g/dL (2.2-4.2); Glucose 102 mg/dL (74-106); High Density Lipoprotein 59 mg/dL; Potassium 3.7 mmol/L (3.5-5.1); Protein, Total 7.5 g/dL (6.4-8.2); Sodium Level 142 mmol/L (136-145); T4 Free Direct 0.84 ng/dL (0.76-1.46); Triglycerides 137 mg/dL; Very Low Density Lipoprotein 27 mg/dL (5-40)
[2023-12-20 11:22] LABS: Microalbumin,Random Urine 91.5 mg/L (NO RANGE EST.); Microalbumin:Creatinine Ratio 37.3 mg/g CRE (<30 mg/g CRE)
[2023-12-20 12:22] LABS: Hemoglobin A1c 5.7 % (3.8-5.6)
== END | disposition home or self-care (01) ==
LOC: LAB 09:14
PROVIDERS: PCP Internal Medicine; Referring Provider Internal Medicine Endocrinology, Diabetes & Metabolism; Visit Provider Internal Medicine Endocrinology, Diabetes & Metabolism
DX: I10 Essential (primary) hypertension (principal); C73 Malignant neoplasm of thyroid gland; E89.0 Postprocedural hypothyroidism; R73.03 Prediabetes
CPT/HCPCS: 36415; 80053; 80061; 82043; 82570; 83036; 84439; 84443; 84481

== ENCOUNTER → 2024-07-03 | Outpatient (CLI) | payer BC, SELFPAY ==
[2024-07-03 10:14] LABS: Hemoglobin A1c 5.7 % (<=5.6)
[2024-07-03 10:26] LABS: ALB/GLOB Ratio 1.5 RATIO (0.9-2.4); AST(SGOT) 32 U/L (<=31); Alanine Aminotransfer ALT/SGPT 32 U/L (<=34); Albumin, Serum 4.5 g/dL (3.5-5.0); Alkaline Phosphatase 75 U/L (35-104); Anion Gap 12 (5-15); BUN 14 mg/dL (4-19); BUN/Creat Ratio 20.3 RATIO (10-20); Calcium,Total 9.7 mg/dL (7.6-11.0); Carbon Dioxide 26.2 mmol/L (21.0-32.0); Chloride 101 mmol/L (98-108); Cholesterol 248 mg/dL (<=200); EST Glomerular Filtration Rate 100 (>60); Globulin 3.1 g/dL (2.2-4.2); Glucose 102 mg/dL (70-99); High Density Lipoprotein 62 mg/dL; Low Density Lipoprotein Calc. 162 mg/dL; Potassium 4.3 mmol/L (3.3-5.1); Protein, Total 7.6 g/dL (5.9-8.4); Sodium Level 140 mmol/L (133-145); Triglycerides 121 mg/dL; Very Low Density Lipoprotein 24 mg/dL (5-40); cholesterol:hdl ratio screen 3.99
[2024-07-03 10:29] LABS: Free T3 3.8 pg/mL (2.18-3.98); Thyroid Stim Hormone (TSH) 0.074 uIU/mL (0.300-4.200); Vitamin D,25 Hydroxy 65.9 ng/mL (30-100)
== END | disposition home or self-care (01) ==
LOC: LAB 09:09
PROVIDERS: PCP Internal Medicine; Referring Provider Internal Medicine Endocrinology, Diabetes & Metabolism; Visit Provider Internal Medicine Endocrinology, Diabetes & Metabolism
DX: I10 Essential (primary) hypertension (principal); C73 Malignant neoplasm of thyroid gland; E89.0 Postprocedural hypothyroidism; R73.03 Prediabetes; E78.5 Hyperlipidemia, unspecified
CPT/HCPCS: 36415; 80053; 80061; 82306; 83036; 84439; 84443; 84481

== ENCOUNTER → 2024-11-22 | Outpatient (CLI) | payer BC, SELFPAY ==
[2024-11-22 14:49] LABS: AST(SGOT) 25 U/L (<=31); Alanine Aminotransfer ALT/SGPT 23 U/L (<=34); Albumin, Serum 4.5 g/dL (3.5-5.0); Alkaline Phosphatase 64 U/L (35-104); Anion Gap 13 (5-15); BUN 16 mg/dL (4-19); BUN/Creat Ratio 20.9 RATIO (10-20); Calcium,Total 9.6 mg/dL (7.6-11.0); Carbon Dioxide 21.9 mmol/L (21.0-32.0); Chloride 101 mmol/L (98-108); Cholesterol 180 mg/dL (<=200); Free T3 2.2 pg/mL (2.18-3.98); Globulin 2.7 g/dL (2.2-4.2); Glucose 94 mg/dL (70-99); Low Density Lipoprotein Calc. 79 mg/dL; Potassium 4.0 mmol/L (3.3-5.1); Triglycerides 153 mg/dL; Very Low Density Lipoprotein 31 mg/dL (5-40); Vitamin D,25 Hydroxy 64.1 ng/mL (30-100); cholesterol:hdl ratio screen 2.54
[2024-11-24 19:07] LABS: Thyroglobulin, Serum Qt. 0.6 ng/mL (1.5-38.5)
== END | disposition home or self-care (01) ==
LOC: LAB 12:49
PROVIDERS: PCP Internal Medicine; Referring Provider Internal Medicine Endocrinology, Diabetes & Metabolism; Visit Provider Internal Medicine Endocrinology, Diabetes & Metabolism
DX: I10 Essential (primary) hypertension (principal); C73 Malignant neoplasm of thyroid gland; R73.03 Prediabetes; E78.5 Hyperlipidemia, unspecified; E89.0 Postprocedural hypothyroidism
CPT/HCPCS: 36415; 80053; 80061; 82306; 83036; 84432; 84439; 84443; 84481; 86376; 86800